=== PATIENT | male | born 1970 | race Caucasian/White ===

== ENCOUNTER 2016-12-30 14:28 | Inpatient (IN) | payer MEDICARE ==
[~2016-12-30] VITALS: Ht 170.2 cm; Wt 72.5 kg
[~2016-12-30 14:28] MED LIST: AZULFIDINE500 MG PO; BLACK COHOSH200 MG PO; CIPRO500 MG PO; COREG6.25 MG PO; DIFLUCAN200 MG PO; FLAGYL500 MG PO; FOLIC ACID1 MG PO; HYDROCHLOROTHIA25 MG PO; LEVAQUIN500 MG PO; LOPRESSOR25 MG PO; METHOTREXATE2.5 MG PO; NORCO 10/325 TA1 TA1 PO; OXY IR30 MG PO; OXYCONTIN30 MG PO; PEPCID20 MG PO; PLAQUENIL200 MG PO; PREDNISONE10 MG PO; PROVENTIL/2.5 MG/3 M INH; ROCEPHIN 1 GM IN1 GM IV; TREXALL10 MG PO; VIBRAMYCIN 100100 MG PO; XANAX1 MG PO; XOPENEX 0.0.63 MG/3 UPD; ZESTORETIC 20/21 TAB PO; ZYLOPRIM100 MG PO; ZYLOPRIM300 MG PO
[2016-12-30 15:46] LABS: BASOPHILS 0.3 % (0-2); EOSINOPHILS 0.5 % (0-7); HEMOGLOBIN 15.8 g/dL (13.5-17.5); IMMATURE GRANULOCYTES 2.5 % (0-5); MCH 30.7 pg (26.0-34.0); MCHC 31.6 g/dL (31.0-37.0); MCV 97.3 fL (80.0-100.0); MONOCYTES 10.8 % (2-11); NEUTROPHILS 72.9 % (40-80); PLATELET COUNT 294 10x3/uL (130-400); RBC 5.14 10x6/uL (4.20-6.10); RDW 16.5 % (11.5-14.5); WBC 15.1 10x3/uL (4.8-10.8)
[2016-12-30 15:59] LABS: INR 0.95 (0.85-1.17); PROTIME 12.5 SECONDS (11.6-15.0)
[2016-12-30 16:00] LABS: APTT 30.4 SECONDS (22.8-39.4)
[2016-12-30 16:01] LABS: ALBUMIN 2.4 g/dL (3.4-5.0); ALKALINE PHOSPHATASE 104 U/L (46-116); ALT (SGPT) 27 U/L (10-68); BILIRUBIN - TOTAL 0.55 mg/dL (0.2-1.3); CALC OSMOLALITY 274 mosm/kg (275-300); CALCIUM 9.1 mg/dL (8.5-10.1); CARBON DIOXIDE 30.2 mmol/L (21.0-32.0); CHLORIDE - SERUM 98 mmol/L (98-107); CREATINE KINASE 18 UL (21-232); CREATININE - SERUM 1.1 mg/dL (0.6-1.3); GLUCOSE 107 mg/dL (74-106); POTASSIUM - SERUM 3.9 mmol/L (3.5-5.1); PROTEIN - SERUM 7.6 g/dL (6.4-8.2); SODIUM 138 mmol/L (136-145); UREA NITROGEN 11 mg/dL (7-18); eGFR NON AFRICAN AMERICAN 76 mL/min (90-120)
[2016-12-30 16:38] LABS: APPEARANCE CLEAR (CLEAR); BILIRUBIN NEGATIVE (NEGATIVE); COLOR YELLOW (YELLOW); GLUCOSE NEGATIVE (NEGATIVE); KETONE SMALL mg/dL (NEGATIVE); LEUKOCYTE ESTERASE NEGATIVE (NEGATIVE); NITRITE NEGATIVE (NEGATIVE); PROTEIN TRACE mg/dL (NEGATIVE); UROBILINOGEN NORMAL (NORMAL)
[2016-12-30 23:44] VITALS: BP 157/97; BMI 18.8
[2016-12-31] VITALS: BP 146/96
[2016-12-31 04:00] VITALS: BP 125/81
[2016-12-31 06:49] LABS: BASOPHILS 0.1 % (0-2); EOSINOPHILS 0.9 % (0-7); HEMATOCRIT 45.6 % (42.0-54.0); HEMOGLOBIN 14.1 g/dL (13.5-17.5); IMMATURE GRANULOCYTES 3.1 % (0-5); LYMPHOCYTES 4.3 % (15-50); MCH 30.2 pg (26.0-34.0); MCHC 30.9 g/dL (31.0-37.0); MCV 97.6 fL (80.0-100.0); MEAN PLATELET VOLUME 8.7 fL (7.4-10.4); MONOCYTES 2.6 % (2-11); RBC 4.67 10x6/uL (4.20-6.10); RDW 16.5 % (11.5-14.5); WBC 14.9 10x3/uL (4.8-10.8)
[2016-12-31 06:50] LABS: PLATELET COUNT 213 10x3/uL (130-400)
[2016-12-31 06:56] LABS: CALC OSMOLALITY 275 mosm/kg (275-300); CALCIUM 7.9 mg/dL (8.5-10.1); CARBON DIOXIDE 29.2 mmol/L (21.0-32.0); CHLORIDE - SERUM 102 mmol/L (98-107); CREATININE - SERUM 0.9 mg/dL (0.6-1.3); GLUCOSE 125 mg/dL (74-106); POTASSIUM - SERUM 3.4 mmol/L (3.5-5.1); SODIUM 138 mmol/L (136-145); UREA NITROGEN 11 mg/dL (7-18); eGFR NON AFRICAN AMERICAN > 90 mL/min (90-120)
--- NOTE | 2016-12-31 07:25 | NUR ---
SLEEPING AT THIS TIME WITH RESPIRATIONS EVEN AND NON LABORED. OXYGEN ON 2L VIA NC. BED ALARM ON AND SRX2 WITH BED IN LOWEST POSITION AND WHEELS LOCKED. CALL LIGHT IN REACH, WILL CONTINUE WITH PLAN OF CARE.
[2016-12-31 09:01] VITALS: BP 171/100
--- NOTE | 2016-12-31 09:41 | NUR ---
SCHEDULED MEDICATIONS ADMINISTERED AT THIS TIME PER ORDER. PT ALERT AND ORIENTED TO SELF AND SITUATION ONLY. STILL REMAINS UNABLE TO MOVE NECK DUE TO PAIN AND STIFFNESS FROM FALL. DR CRUZ AWARE OF THIS. REFUSES SCD'S, BUT LOVENOX ADMINISTERED. ASSESSMENT PERFORMED PER FLOWSHEET. CALL LIGHT IN REACH, SRX1 WITH BED IN LOWEST POSITION AND WHEELS LOCKED. BED ALARM ON. WILL CONTINUE WITH PLAN OF CARE.
[2016-12-31] MEDS ORDERED: TOPROL XL25 MG PO (10:33)
[2016-12-31] MEDS ORDERED: PREDNISONE10 MG PO (10:34)
[2016-12-31] MEDS ORDERED: METHOTREXATE2.5 MG PO (10:34)
[2016-12-31] MEDS ORDERED: METOPROLOL TART50 MG PO (10:39)
[2016-12-31 10:46] VITALS: Ht 170.2 cm; Wt 72.5 kg
--- NOTE | 2016-12-31 11:19 | NUR ---
PRN OXY-IR GIVEN PER ORDER FOR PAIN 01/30. ASSESSMENT PERFORMED PER FLOWSHEET. CALL LIGHT IN REACH, WILL CONTINUE WITH PLAN OF CARE. WILL CONTINUE WITH PLAN OF CARE. BED ALARM ON, CALL LIGHT IN REACH. SRX1 WITH BED IN LOWEST POSITION AND WHEELS LOCKED.
[2016-12-31 13:02] VITALS: BP 161/94
--- NOTE | 2016-12-31 13:45 | NUR ---
PRN TYLENOL 1,000MG ADMINISTERED FOR FEVER, SEE FLOWSHEET.
--- NOTE | 2016-12-31 15:19 | NUR ---
PRN OXY IR 30MG ADMINISTERED PER ORDER FOR PAIN 01/30. TEMPERATURE 99.1 AT THIS TIME. BOUDREAX'S APPLIED TO REDDENED AREA ON COCCYX AND PT POSITION ON RIGHT SIDE. CALL LIGHTIN REACH, BED ALARM REMAINS ON. WILL CONTINUE WITH PLAN OF CARE.
[2016-12-31 17:12] VITALS: BP 120/75
--- NOTE | 2016-12-31 17:25 | NUR ---
SLEEPING AT THIS TIME, POSITIONED ON RIGHT SIDE WITH RESPIRATIONS EVEN AND NON LABORED. CALL LIGHT IN REACH AND BED ALARM REMAINS ON. WILL CONTINUE WITH PLAN OF CARE.
[2016-12-31 20:00] VITALS: BP 114/65
[2017-01-01] VITALS: BP 138/88
--- NOTE | 2017-01-01 03:18 | NUR ---
PT IS RESTING QUIET WITH NO DISTRESS AND EASY RESPIRTATION NOTED. HE HAS O2 IN PLACE AND THE BED IS FLAT DUE TO PAINFUL ARTHRITIS WHEN IT IS MOVED UP OR DOWN FOR COMFORT. THE BED IS LWO, RAILS UP X'S 2 WITH THE CALL LIGHT AT HAND.
[2017-01-01 04:00] VITALS: BP 152/96
[2017-01-01 05:55] LABS: BASOPHILS 0.3 % (0-2); EOSINOPHILS 0.2 % (0-7); HEMOGLOBIN 14.7 g/dL (13.5-17.5); IMMATURE GRANULOCYTES 2.8 % (0-5); LYMPHOCYTES 4.7 % (15-50); MCH 30.4 pg (26.0-34.0); MCHC 30.6 g/dL (31.0-37.0); MCV 99.2 fL (80.0-100.0); MEAN PLATELET VOLUME 8.8 fL (7.4-10.4); PLATELET COUNT 242 10x3/uL (130-400); RBC 4.84 10x6/uL (4.20-6.10); RDW 16.4 % (11.5-14.5); WBC 16.7 10x3/uL (4.8-10.8)
[2017-01-01 06:15] LABS: CALCIUM 8.5 mg/dL (8.5-10.1); CHLORIDE - SERUM 98 mmol/L (98-107); SODIUM 133 mmol/L (136-145); eGFR NON AFRICAN AMERICAN 85 mL/min (90-120)
[2017-01-01 06:17] LABS: CALC OSMOLALITY 268 mosm/kg (275-300); GLUCOSE 194 mg/dL (74-106); POTASSIUM - SERUM 4.6 mmol/L (3.5-5.1); UREA NITROGEN 8 mg/dL (7-18)
--- NOTE | 2017-01-01 07:15 | NUR ---
SLEEPING AT THIS TIME WITH RESPIRATIONS SHALLOW AND EVEN. OXYGEN ON 2L VIA NC. ASSESSMENT PERFORMED PER FLOWSHEET. PT VERY LETHARGIC AND DOESN'T WANT TO STAY AWAKE. MANAGER HOTEL PHYSICIAN PAGED AT THIS TIME WITH NO RETURN PHONE CALL.
[2017-01-01 08:31] VITALS: BP 171/111
--- NOTE | 2017-01-01 09:19 | NUR ---
PLACED IN TEMPORARY CONTACT ISOLATION DUE TO RULING OUT MRSA IN THE PT'S BLOOD STREAM.
--- NOTE | 2017-01-01 10:25 | NUR ---
RAPID RESPONSE CALLED DUE TO DECREASED LOC AND LETHARGY. SEE RAPID RESPONSE FLOW SHEET. DR STEARNS AT BEDSIDE PROVIDING ORDERS. NO RETURN PHONE CALL FROM CARPET CLEANER PHYSICIAN. ORDERS PER ICU. WILL CONTINUE WITH PLAN OF CARE.
--- NOTE | 2017-01-01 11:47 | NUR ---
PT DENNYS CLEANED USING ASEPTIC TECH.DENNYS DRAPED AND PREPPED USING LENS HARDENER. 16 POLISH EASTMAN CATHETER INSERTED MAINTAINING LENS HARDENER.350CC OF CLEAR YELLOW URINE RETURNED IN COLLECTION BAG.PT TOLERATED WELL
--- NOTE | 2017-01-01 11:57 | NUR ---
SCHEDULED MEDICATIONS ADMINISTERED AT THIS TIME. PO MEDICATIONS HELD DUE TO LETHARGY. EASTMAN CATHETER PATENT AND DRAINING TO GRAVITY. BI-PAP PER DR QUINTANA'S ORDER.
[2017-01-01 12:14] VITALS: BP 152/105
--- NOTE | 2017-01-01 13:55 | NUR ---
PAGED MOTOR VEHICLE LIGHT ASSEMBLER PRIMARY CARE DR AT THIS TIME REGARDING HEART RATE 160'S SINUS TACH. AWAITING A PHONE CALL BACK.
--- NOTE | 2017-01-01 14:09 | NUR ---
SIGN INSTALLER CALLED AND HEART RATE 130 SINUS TACH, WHICH IS DOWN FROM 160'S SINUS TACH.
--- NOTE | 2017-01-01 14:45 | NUR ---
SPOKE WITH DR MESSER AT THIS TIME REGARDING PT'S HEART RATE 140-160'S SINUS TACH. NEW ORDERS OBTAINED.
--- NOTE | 2017-01-01 15:05 | NUR ---
PRN OFIRMEV ADMINISTERED FOR FEVER AND ONE TIME DOSE OF LOPRESSOR ADMINISTERED FOR HEART RATE AND BLOOD PRESSURE. PT REMAINS LETHARGIC AND BI PAP IN PLACE. WILL CONTINUE WITH PLAN OF CARE. DOOR OPEN AND PT REMAINS IN CONTACT ISOLATION.
[2017-01-01 15:40] VITALS: BP 99/62
--- NOTE | 2017-01-01 15:41 | NUR ---
TEMPERATURE 98.5 POST 1,000 MG OF OFIRMEV IV AND BLOOD PRESSURE 99/62 AND HEART RATE 124 POST DOSE OF LOPRESSOR 5MG IV PER ORDER. OXYGEN ON 2L AND BI-PAP REMOVED WITH OXYGENS SATURATION 100 %. WILL CONTINUE TO MONITOR PT.
--- NOTE | 2017-01-01 16:15 | NUR ---
FULL BED BATH PROVIDED AND CATAPRES PATCH CAME OFF OF PT DUE TO SWEATY EPISODE. CALLED PHARMACY FOR NEW PATCH TO BE PLACED.
[2017-01-01] MEDS ORDERED: MS CONTIN30 MG PO (16:31)
[2017-01-01] MEDS ORDERED: ROXICODONE15 MG PO (16:31)
[2017-01-01 20:00] VITALS: BP 122/79
[2017-01-02] VITALS: BP 146/77
--- NOTE | 2017-01-02 02:15 | NUR ---
CONTINIOUS PULSE OX PLACED ON RIGHT FOOT, SPO2 98% ON 4LPM 02 NC. RESPIRATORY THERAPY RECOMENDED LEAVING O2 IS DURING THE NIGHT.
[2017-01-02 04:00] VITALS: BP 146/91
[2017-01-02 06:24] LABS: BASOPHILS 0.3 % (0-2); EOSINOPHILS 1.9 % (0-7); HEMATOCRIT 42.6 % (42.0-54.0); IMMATURE GRANULOCYTES 0.9 % (0-5); LYMPHOCYTES 8.5 % (15-50); MCH 29.6 pg (26.0-34.0); MCHC 30.5 g/dL (31.0-37.0); MEAN PLATELET VOLUME 9.1 fL (7.4-10.4); MONOCYTES 6.7 % (2-11); NEUTROPHILS 81.7 % (40-80); PLATELET COUNT 214 10x3/uL (130-400); RBC 4.39 10x6/uL (4.20-6.10)
[2017-01-02 06:27] LABS: WBC 11.4 10x3/uL (4.8-10.8)
[2017-01-02 06:35] LABS: CALCIUM 7.8 mg/dL (8.5-10.1); CARBON DIOXIDE 32.2 mmol/L (21.0-32.0); CHLORIDE - SERUM 98 mmol/L (98-107); CREATININE - SERUM 0.9 mg/dL (0.6-1.3); SODIUM 136 mmol/L (136-145); eGFR NON AFRICAN AMERICAN > 90 mL/min (90-120)
[2017-01-02 06:40] LABS: CALC OSMOLALITY 271 mosm/kg (275-300); GLUCOSE 145 mg/dL (74-106); UREA NITROGEN 5 mg/dL (7-18)
--- NOTE | 2017-01-02 08:05 | NUR ---
ASSESSMENT PER FLOW SHEET.PT WITHOUT DISTRESS.VERY HARD TO WAKE THIS AM,BUT ALERT WHEN AWAKE.REDNESS NOTED TO BUTTOCK BUT NO OPEN AREAS.CALL LIGHT IN REACH.ISOLATION MAINTAINED
--- NOTE | 2017-01-02 08:30 | NUR ---
DECLINES TO EAT BREAKFAST
[2017-01-02 08:33] VITALS: BP 124/78
--- NOTE | 2017-01-02 09:28 | NUR ---
Patient Name: SEKOU ELAINE Admission Status: ER Accout number: [id number] Admission Date: 12-30-2016 : 1970 Admission Diagnosis: Attending: GEORGE Current LOS: 3 Anticipated DC Date: 01-06-2017 Planned Disposition: Home Primary Insurance: WE[employer] MEDICARE ADV Discharge Planning Comments: CM MET WITH PATIENT REGARDING D/C NEEDS AND PLANS. PATIENT STATED HE LIVES WITH HIS (TEJ) AND SHE WILL DRIVE HIM HOME AT DISCHARGE. PATIENT STATED HE HAS A RAMP TO ENTER HOME AND NO STAIRS INSIDE. PATIENT STATED HE IS INDEPENDENT WITH HIS CARE AND HAS A WHEELCHAIR, OXYGEN, PORTABLE O2, AND NEBULIZER AT HOME. PATIENT STATED HIS PCP IS DR. CRUZ AND PHARMACY IS [facility]. PATIENT DOES NOT WANT HOME HEALTH. CM WILL CONTINUE TO FOLLOW PATIENT WITH D/C NEEDS AND PLANS. PCP DR. ANTHONY CHATTERJEE [facility], [place]- [phone] TEJ () [phone] Fun House Operator: Tessa Dc Is the patient Alert and Oriented? Yes 0 * How many steps to enter\exit or inside your home? RAMP 0 * PCP DR. CRUZ 0 * Pharmacy [facility] 0 * Preadmission Environment Home with Family 0 * ADLs Independent 0 * Equipment Nebulizer Oxygen Wheelchair 0 * Other Equipment PORTABLE O2 (LINCARE) 0 * List name and contact numbers for known caregivers / representatives who currently or will assist patient after discharge: TEJ () [phone] 0 * Additional services required to return to the preadmission environment? Yes 0 * Can the patient safely return to the preadmission environment? Yes 0 * Has this patient been hospitalized within the prior 30 days at any hospital? No 0 Grand Total: 0
--- NOTE | 2017-01-02 12:00 | NUR ---
TO VISIT.PT WITHOUT DISTRESS,BUT HARD TO AROUSE.PT WISHES NOT TO VISIT
[2017-01-02 12:41] VITALS: BP 145/83
--- NOTE | 2017-01-02 14:52 | NUR ---
NUTRITION MONITORING & EVAL CHART REVIEWED. RESPIRATORY THERAPIST CURRENTLY IN ROOM. NURSING REPORTS PT REFUSING MEALS AT THIS TIME. WILL CONTINUE TO PROVIDE AHA DIET, ENCOURAGE PO INTAKE. RD FOLLOWING
[2017-01-02 16:15] VITALS: BP 199/103
--- NOTE | 2017-01-02 17:01 | NUR ---
REMAINS WITHUT CHANGE FROM INITIAL SHIFT ASSESSMENT.CONT PLAN OF CARE
[2017-01-02 19:00] VITALS: BP 154/90
[2017-01-03] VITALS: BP 130/76
[2017-01-03 04:00] VITALS: BP 119/79
[2017-01-03 05:08] LABS: BASOPHILS 0.3 % (0-2); EOSINOPHILS 2.1 % (0-7); HEMATOCRIT 43.7 % (42.0-54.0); HEMOGLOBIN 13.7 g/dL (13.5-17.5); IMMATURE GRANULOCYTES 1.9 % (0-5); LYMPHOCYTES 12.5 % (15-50); MCHC 31.4 g/dL (31.0-37.0); MCV 95.8 fL (80.0-100.0); MEAN PLATELET VOLUME 9.3 fL (7.4-10.4); NEUTROPHILS 74.2 % (40-80); RBC 4.56 10x6/uL (4.20-6.10); RDW 16.2 % (11.5-14.5); WBC 11.6 10x3/uL (4.8-10.8)
[2017-01-03 05:12] LABS: PLATELET COUNT 262 10x3/uL (130-400)
[2017-01-03 05:16] LABS: CALC OSMOLALITY 276 mosm/kg (275-300); CALCIUM 8.4 mg/dL (8.5-10.1); CARBON DIOXIDE 31.8 mmol/L (21.0-32.0); CHLORIDE - SERUM 99 mmol/L (98-107); CREATININE - SERUM 0.8 mg/dL (0.6-1.3); GLUCOSE 151 mg/dL (74-106); SODIUM 138 mmol/L (136-145); UREA NITROGEN 6 mg/dL (7-18); eGFR NON AFRICAN AMERICAN > 90 mL/min (90-120)
[2017-01-03 05:24] LABS: POTASSIUM - SERUM 2.8 mmol/L (3.5-5.1)
--- NOTE | 2017-01-03 07:45 | NUR ---
PT CONFUSED AT TIMES RESP EVEN AND NONLABORED IV TO LEFT HAND PATENT AND INTACT SRX2 BED AT LOWEST SETTING CALL LIGHT WITHIN REACH WILL COTINUE TO MONITOR
[2017-01-03 08:49] VITALS: BP 130/88
[2017-01-03 12:41] VITALS: BP 159/104
[2017-01-03 16:23] VITALS: BP 118/81
[2017-01-03 19:00] VITALS: BP 121/77
--- NOTE | 2017-01-03 20:00 | NUR ---
ASSESSMENT PER FLOWSHEET. IV PATENT LEFT HAND OF D51/2NS INFUSING AT 125CC'S/HR SITE CLEAR. RED RASH OVER BODY. EASTMAN TO BS DRAINAGE.TELM. SHOWS SR WITH BBB. HR 98.O2 ON 3L/M PER NC NO DISTRESS.
--- NOTE | 2017-01-03 20:20 | NUR ---
ROXK=[id number]. ORDERED BLOOD CULTURES PRDERED FOR TEMP MEASURES. CHRONOMETER REPAIRER HERE TO DRAW BLOOD WORK.
--- NOTE | 2017-01-03 21:00 | NUR ---
MEDS GIVEN PER MAR.
[2017-01-04] VITALS: BP 108/68
--- NOTE | 2017-01-04 | NUR ---
EYES CLOSED RESPIRATIONS WITH EASE AND UNLABORED.
--- NOTE | 2017-01-04 03:00 | NUR ---
REMAINS AFEBRILE. SR UP X2 CALL LIGHT WITHIN REACH.
[2017-01-04 04:00] VITALS: BP 122/73
[2017-01-04 05:21] LABS: BASOPHILS 0.1 % (0-2); EOSINOPHILS 0 % (0-7); HEMATOCRIT 37.9 % (42.0-54.0); HEMOGLOBIN 11.4 g/dL (13.5-17.5); LYMPHOCYTES 7.4 % (15-50); MCHC 30.1 g/dL (31.0-37.0); MCV 96.4 fL (80.0-100.0); MEAN PLATELET VOLUME 9.3 fL (7.4-10.4); MONOCYTES 3.8 % (2-11); NEUTROPHILS 87.7 % (40-80); RBC 3.93 10x6/uL (4.20-6.10); RDW 16.1 % (11.5-14.5); WBC 13.8 10x3/uL (4.8-10.8)
[2017-01-04 05:22] LABS: PLATELET COUNT 320 10x3/uL (130-400)
[2017-01-04 06:03] LABS: CALCIUM 8.2 mg/dL (8.5-10.1); CARBON DIOXIDE 29.8 mmol/L (21.0-32.0); CHLORIDE - SERUM 103 mmol/L (98-107); CREATININE - SERUM 0.8 mg/dL (0.6-1.3); SODIUM 139 mmol/L (136-145); VANCOMYCIN - TROUGH 1.6 ug/mL (10.0-20.0); eGFR NON AFRICAN AMERICAN > 90 mL/min (90-120)
[2017-01-04 06:04] LABS: CALC OSMOLALITY 289 mosm/kg (275-300); GLUCOSE 323 mg/dL (74-106); POTASSIUM - SERUM 3.7 mmol/L (3.5-5.1); UREA NITROGEN 12 mg/dL (7-18)
--- NOTE | 2017-01-04 07:40 | NUR ---
PT AOX4 RESP EVEN AND NONLABORED PT DENIES NEEDS AT THIS TIME IV TO LEFT HAND PATENT AND INTACT SRX2 BED AT LOWEST SETTING CALL LIGHT WITHIN REACH WILL CONTINUE TO MONITOR
[2017-01-04 08:05] VITALS: BP 117/74
[2017-01-04 11:36] VITALS: BP 120/76
[2017-01-04 16:03] VITALS: BP 118/72
[2017-01-04 20:00] VITALS: BP 125/66
--- NOTE | 2017-01-04 20:00 | NUR ---
ASSESSMENT PER FLOWSHEET. PT MORE ALERT AND ORIENTED X3. SCD'S OFF. IV PATENT LEFT HAND OF D5NS AT 125CC'S/HR. PLACED ON BEDPAN HAD LARGE SOFT FORMED BROWN STOOL CLEANED AND DRIED. O2 ON 3L/M PER NC. SR UP X2 CALL LIGHT WITHIN REACH. TELM. SHOWING SR W/BBB HR AT 82. EASTMAN TO BS DRAINAGE.
--- NOTE | 2017-01-04 22:00 | NUR ---
MEDS GIVEN PER MAR. RMYL=614.HUMALOG INSULIN 16 UNITS GIVEN SUBC PER S/S.
[2017-01-05] VITALS: BP 130/74
--- NOTE | 2017-01-05 | NUR ---
EYES CLOSED RESPIRATIONS WITH EASE AND UNLABORED.
--- NOTE | 2017-01-05 03:00 | NUR ---
'EYES CLOSED RESPIRATIONS WITH EASE AND UNLABORED. DENIES NEEDS.
[2017-01-05 04:00] VITALS: BP 138/90
--- NOTE | 2017-01-05 05:37 | NUR ---
RESTING QUIETLY BODY INGOOD ALIGNMENT. RED RASH ON BODY SEEMS TO BE IMPROVING.
--- NOTE | 2017-01-05 07:00 | NUR ---
PT REC'D FROM [facility]. RESTING IN BED WITH EYES CLOSED. EASILY AROUSED. AAOX4. O2 ON VIA NC AT 3L. CONT PULSE OX READING 98%. PIV TO L HAND FREE OF REDNESS AND SWELLING. LUNG SOUNDS CLEAR AND EQUAL BILAT. REGULAR HEART RATE AND RHYTHM. BOWEL SOUNDS HYPERACTIVE X4 QUADRANTS. REFUSING SCD'S. +2 PEDAL PULSES BILAT. CONTRACTURES BILAT TO ANKLES. PT STATES HE USES WC AT HOME. EASTMAN CATHETER DRAINING YELLOW CLOUDY URINE TO GRAVITY. RATING CURRENT PAIN IN NECK 12/31. EXPLAINED TO PT THAT HE HAS SCHEDULED PAIN MEDICATION DUE AT 9. PT STATES HE UNDERSTANDS AND HAS NO QUESTIONS. BED LOW, CALL LIGHT IN REACH, DENIES NEEDS. CPOC.
[2017-01-05 08:05] VITALS: BP 156/90
[2017-01-05 08:09] LABS: BASOPHILS 0.1 % (0-2); EOSINOPHILS 0.6 % (0-7); HEMOGLOBIN 11.5 g/dL (13.5-17.5); IMMATURE GRANULOCYTES 1.3 % (0-5); LYMPHOCYTES 9.7 % (15-50); MCH 29.4 pg (26.0-34.0); MCHC 30.3 g/dL (31.0-37.0); MCV 97.2 fL (80.0-100.0); MEAN PLATELET VOLUME 9.2 fL (7.4-10.4); MONOCYTES 4.1 % (2-11); NEUTROPHILS 84.2 % (40-80); PLATELET COUNT 367 10x3/uL (130-400); RBC 3.91 10x6/uL (4.20-6.10); RDW 16.2 % (11.5-14.5); WBC 15.1 10x3/uL (4.8-10.8)
[2017-01-05 08:24] LABS: ALBUMIN 1.6 g/dL (3.4-5.0); ALKALINE PHOSPHATASE 69 U/L (46-116); ALT (SGPT) 21 U/L (10-68); CALC OSMOLALITY 282 mosm/kg (275-300); CALCIUM 8.2 mg/dL (8.5-10.1); CARBON DIOXIDE 33.3 mmol/L (21.0-32.0); CHLORIDE - SERUM 104 mmol/L (98-107); CREATININE - SERUM 0.7 mg/dL (0.6-1.3); POTASSIUM - SERUM 3.6 mmol/L (3.5-5.1); PROTEIN - SERUM 5.6 g/dL (6.4-8.2); SODIUM 141 mmol/L (136-145); UREA NITROGEN 11 mg/dL (7-18); eGFR NON AFRICAN AMERICAN > 90 mL/min (90-120)
[2017-01-05 08:29] LABS: GLUCOSE 150 mg/dL (74-106)
--- NOTE | 2017-01-05 08:50 | NUR ---
PT RESTING IN BED WITH COMPLAINTS OF PAIN OF A 7 ON A SCALE OF 1-10. PT STATED THAT NURSE TOLD HIM THAT MEDICATION WOULD BE GIVEN WITH AM MEDS, INFORMED THE PT THAT I WOULD DISCUSS WITH THE NURSE. NO OTHER COMPLAINTS AT THIS TIME. BED IN LOW POSITION AND CALL LIGHT WITHIN REACH. WILL CONTINUE TO MONITOR.
--- NOTE | 2017-01-05 11:58 | NUR ---
CURRENT FSBS 229. 12 UNITS OF INSULIN ADMINISTERED PER SS. MEGGAN OLIVARESTIE TAMPER ACCESS NURSE, AT BEDSIDE PLACING MIDLINE.
[2017-01-05 12:55] VITALS: BP 133/76
--- NOTE | 2017-01-05 14:44 | NUR ---
CM REASSESSMENT NOTE: CM DISCUSSED HOME HEALTH WITH PATIENT AND HE STATED FOR CM TO CALL HIS (TEJ) TO CHOOSE. TEJ CHOSE [facility] IF NEEDED. CM WILL CONTINUE TO FOLLOW PATIENT WITH D/C NEEDS AND PLANS.
[2017-01-05 15:53] VITALS: BP 143/85
[2017-01-05 20:00] VITALS: BP 123/63
[2017-01-06] VITALS: BP 125/82
[2017-01-06 04:00] VITALS: BP 128/80
[2017-01-06 08:00] VITALS: BP 142/82
[2017-01-06 11:03] VITALS: BP 119/76
[2017-01-06] MEDS ORDERED: NICODERM C1 PATCH .2 TRANSDERM (11:26)
[2017-01-06] MEDS ORDERED: Ancef 2 GM/Dextrose IV (11:26)
[2017-01-06] MEDS ORDERED: ALDACTONE25 MG PO (11:27)
[2017-01-06] MEDS ORDERED: COZAAR50 MG PO (11:27)
[2017-01-06] MEDS ORDERED: CATAPRES TTS-20.2 MG TRANSDERM (11:27)
[2017-01-06] MEDS ORDERED: FLORAJEN3 CAPS460 MG PO (11:29)
[2017-01-06] MEDS ORDERED: PULMICORT0.5 MG/21 UPD (11:29)
--- NOTE | 2017-01-06 12:53 | CN ---
PATIENT NAME:SEKOU ELAINE MEDICAL RECORD: [id number] : [birth year] LOCATION:D.[id number] ADMIT DATE: 12/30/16 ACCOUNT: [id number] CONSULTING PHYSICIAN: LINDA CABRAL MD REFERRING PHYSICIAN: LUIS MESSER MD DATE OF CONSULTATION: 01/03/2017 HISTORY OF PRESENT ILLNESS: This is a 46-year-old gentleman with a history of rheumatoid arthritis on antirheumatic agents, was admitted with fevers, chills, tachycardia, hypertension, ongoing for 2-3 days. He reports long-term dyspnea, has a history of obstructive pulmonary disease. Further evaluation revealed the echocardiographic study which showed a cardiomyopathy with EF 30%. We are asked to see him concerning his cardiovascular status. He does have a longstanding smoking history with obstructive pulmonary disease. He has been admitted previously for sepsis. Mild family history of coronary artery disease. No history of dyslipidemia to his knowledge. PAST MEDICAL HISTORY: Includes: 1. History of hypertension. 2. Obstructive pulmonary disease. 3. Ongoing tobacco use. 4. Gastroesophageal reflux disease. 5. Rheumatoid arthritis with resultant right hip replacement. ALLERGIES: None known. MEDICATIONS: On admission include methotrexate 10 mg weekly, albuterol q.6 p.r.n., metoprolol 50 b.i.d., Xanax 1 mg t.i.d. as needed, MS Contin 30 mg q.12, Roxicodone 15 mg q.4 p.r.n. breakthrough pain, HCTZ 25 q. day, prednisone 10 q.day. SOCIAL HISTORY: Disabled. Smokes about a pack a day. Occasional drinker. He uses recreational cannabis. REVIEW OF SYSTEMS: The patient reports easy bruising but reports no swollen glands. The patient reports no fever, no night sweats, no significant weight gain, no significant weight loss. No significant exercise tolerance. The patient reports no dry eyes, no irritation, no vision change. Patient reports no difficulty hearing and no ear pain. Patient reports no frequent nose bleeds or nose and sinus problems. Patient reports on arm pain on exertion. No shortness of breath while lying down. No history of heart murmur. Patient reports no cough, no wheezing or coughing up blood. Patient reports no abdominal pain, no vomiting. Normal appetite. No diarrhea and not vomiting blood. No nausea and no constipation. Patient reports no incontinence. No difficulty urinating. No hematuria. No increased frequency. Patient reports no muscle aches. No weakness, no arthralgias, no back pain. No swelling of the extremities. Patient reports no abnormal mole, no jaundice, no rashes. Reports no loss of consciousness. No weakness and no numbness. No seizures, dizziness, or headaches. The patient reports no depression, no sleep disturbance, feeling safe in a relationship and no alcohol abuse. Patient reports on fatigue. Reports no runny nose or sinus pressure. No itching, no hives, and no frequent sneezing. PHYSICAL EXAMINATION: GENERAL: Pleasant gentleman, in no acute distress. CONSULT REPORT [id number] SEKOU ELAINE RAY VITAL SIGNS: Pulse currently 100, blood pressure 159/104. HEENT: Normocephalic, atraumatic. NECK: No bruits noted. HEART: Regular, S3 gallop is noted. II/ systolic ejection murmur. LUNGS: Fair air excursion, few expiratory wheezes. ABDOMEN: Soft, nontender. EXTREMITIES: Pulses are decreased 1+. No edema. There is some RA deformities noted in the upper extremities. NEUROLOGIC: Grossly intact. IMPRESSION: Cardiomyopathy, questionable if related to current illness. I agree with current management. We will add ARB to current medications. Once the defervesced is from current illness, would consider diagnostic angiography to exclude ischemic cardiomyopathy. Further recommendations based on the above. TRANSINT:[id number] Voice Confirmation ID: [id number] DOCUMENT ID: [id number] LINDA CABRAL MD at 1253 CC: [id number] DICTATION DATE: 01/03/17 1450 PRINT FINISHING WORKER: 01/04/17 0047 ADM IN [facility] [address] [id number]
--- NOTE | 2017-01-06 12:53 | EC ---
PATIENT:SEKOU ELAINE DATE OF SERVICE: 12/30/16 SEX: M MEDICAL RECORD: [id number] DATE OF : [birth year] LOCATION:D.MS [facility]222 AGE OF PATIENT: 46 ADMISSION DATE: 12/30/16 REFERRING PHYSICIAN: INTERPRETING PHYSICIAN: LINDA CABRAL MD ECHOCARDIOGRAM REPORT ECHO CHARGES 4 ECHO COMPLETE CLINICAL DIAGNOSIS: FEVER - R/O SBE ECHOCARDIOGRAPHIC MEASUREMENTS (adult normal given) AC root (d.<3.7cm) 3.3 LV Septum d (<1.2 cm> 1.6 Valve Excursion 1.6 LV Septum (systole) 2.2 Left Atria (s.<4.0cm> 4.2 LVPW d(<1.2cm) 1.5 RV (d.<2.3cm) 3.2 LVPW (sytole) 2.0 LV diastole(<5.6CM) 5.9 MV E-F(>70mm/sec) LV systole 4.4 LVOT Diameter 1.8 MV exc.(>10mm) Est.ejection fraction (50-75%) Pericardial Effusion N DOPPLER: LVIT A 126 E 82.0 LA RVSP 20.0 LVOT 107 AOP1/2T Asc. Ao 173 RVOT 74.0 RA PA 112 AV Gradient Peak 12.0 AV Mean 6.2 AV Area 1.3 MV Gradient Peak 6.0 MV Mean 2.1 MV Area COMMENTS: Sheet Rock Installation Helper: Terry MONTEMAYOR KEISER American Indian Studies Professor:10 Dr. Lara TAPE# PACS DATE OF SERVICE: 01/02/2017 Adequate 2D echo, color flow, spectral Doppler and M-mode. LVH is present. LV internal dimensions are dilated. LV is globally hypokinetic with reduced EF. Estimated EF 30%. Aortic valve sclerosis without stenosis by Doppler interrogation. Left atrium is mildly dilated at 4.2 cm. The mitral valve is thickened. Trace MR. Right-sided chamber is grossly normal. Trace TR. TRANSINT:[id number] Voice Confirmation ID: [id number] DOCUMENT ID: [id number] ECHOCARDIOGRAM REPORT [id number] SEKOU ELAINE LINDA CABRAL MD at 1253 CC: [id number] DICTATION DATE: 01/02/17 1331 PARKS AND RECREATION MANAGER: 01/03/17 0035 ADM IN [facility] [address] [id number]
[2017-01-06 15:01] VITALS: BP 108/62
--- NOTE | 2017-01-06 16:23 | NUR ---
CM REASSESSMENT NOTE: PATIENT IS DISCHARGING HOME TODAY BY PRIVATE CAR- DRIVING. [facility] OUT [facility] [place] WILL BE SEEING PATIENT AND HOME IV SPECIALISTS OUT [facility] WILL BE THE SUPPLIER FOR HIS HOME IV ABX. HOME IV SPECIALIST WILL CALL [facility] AND SET TIME TO MEET AT PATIENTS HOME TONIGHT. PATIENTS REQUESTED CM ASK HOME IV IF SHE COULD PAY 20.00 TONIGHT AND PAY 35.65 ON THE 3RD WHEN HER CHECK COMES IN. CM CALLED AND ARIADNA STATED THAT WOULD BE FINE. EUGENE WITH [facility] WAS GIVEN SPECIFIC DIRECTIONS TO HOME. HOME IV SPECIALIST- [phone] FRANTZ ROSENTHAL [facility] ([facility]) [phone] HILDA
--- NOTE | 2017-01-06 16:40 | NUR ---
DISCHARGE INSTRUCTIONS COMPLETED WITH PATIENT. D/C IV WITH CATHETER INTACT. PATIENT VERBALIZED UNDERSTANDING FOR DISCHARGE INSTRUCTIONS AND DENIES QUESTIONS.
--- NOTE | 2017-01-06 16:55 | NUR ---
PATIENT LEFT VIA WHEELCHAIR.
== END 2017-01-06 16:56 | disposition home health service (06) | DRG 871 ==
LOC: D.ER 14:28 → D.MS 17:26
PROVIDERS: Emergency Medicine; Family Medicine Adult Medicine; Student in an Organized Health Care Education/Training Program; ADMIT Family Medicine
DX: A41.01 Sepsis due to Methicillin susceptible Staphylococcus aureus (principal); J96.22 Acute and chronic respiratory failure with hypercapnia; R53.2 Functional quadriplegia; J44.1 Chronic obstructive pulmonary disease with (acute) exacerbation; J45.901 Unspecified asthma with (acute) exacerbation; F17.203 Nicotine dependence unspecified, with withdrawal; E87.1 Hypo-osmolality and hyponatremia; M10.9 Gout, unspecified; M06.9 Rheumatoid arthritis, unspecified; R21 Rash and other nonspecific skin eruption; M54.2 Cervicalgia

== ENCOUNTER 2017-06-23 21:50 | Inpatient (IN) | payer MEDICARE ==
[~2017-06-23] VITALS: Ht 170.2 cm; Wt 58.8 kg
[~2017-06-23 21:50] MED LIST changes: +ALDACTONE25 MG PO; +Ancef 2 GM/Dextrose IV; +CATAPRES TTS-20.2 MG TRANSDERM; +COZAAR50 MG PO; +FLORAJEN3 CAPS460 MG PO; +METOPROLOL TART50 MG PO; +MS CONTIN30 MG PO; +NICODERM C1 PATCH .2 TRANSDERM; +PULMICORT0.5 MG/21 UPD; +ROXICODONE15 MG PO; +TOPROL XL25 MG PO
[2017-06-23 23:22] LABS: HEMATOCRIT 38.2 % (42.0-54.0); HEMOGLOBIN 11.8 g/dL (13.5-17.5); MCH 28.6 pg (26.0-34.0); MCHC 30.9 g/dL (31.0-37.0); MCV 92.7 fL (80.0-100.0); MEAN PLATELET VOLUME 9.7 fL (7.4-10.4); PLATELET COUNT 243 10x3/uL (130-400); RBC 4.12 10x6/uL (4.20-6.10); RDW 15.8 % (11.5-14.5); WBC 24.8 10x3/uL (4.8-10.8)
[2017-06-23 23:31] LABS: APPEARANCE CLOUDY (CLEAR); BACTERIA FEW /hpf (NONE SEEN); BILIRUBIN 1+ (NEGATIVE); COLOR YELLOW (YELLOW); EPITHELIAL CELLS OCC /hpf (0-5); GLUCOSE NEGATIVE (NEGATIVE); KETONE SMALL mg/dL (NEGATIVE); MUCUS <1+ /lpf (NONE SEEN); NITRITE NEGATIVE (NEGATIVE); PROTEIN 1+ mg/dL (NEGATIVE); RED CELLS - URINE 0-5 /hpf (0-5); SPECIFIC GRAVITY 1.015 (1.005-1.020)
[2017-06-23 23:32] LABS: AMORPHOUS SEDIMENT >1+ /lpf (NONE SEEN)
[2017-06-23 23:51] LABS: ALBUMIN 1.7 g/dL (3.4-5.0); ANION GAP 14.6 mmol/L (8-16); BILIRUBIN - TOTAL 0.37 mg/dL (0.2-1.3); CALCIUM 8.5 mg/dL (8.5-10.1); CARBON DIOXIDE 25.8 mmol/L (21.0-32.0); CREATININE - SERUM 1.5 mg/dL (0.6-1.3); MAGNESIUM - SERUM 1.7 mg/dL (1.8-2.4); POTASSIUM - SERUM 4.4 mmol/L (3.5-5.1); PROTEIN - SERUM 6.8 g/dL (6.4-8.2); TROPONIN-I 0.021 ng/mL (0.000-0.060)
[2017-06-24] VITALS (7 sets, daily range): BP systolic 81–127; BP diastolic 53–84; Ht 170.2 cm; Wt 58.8 kg
[2017-06-24] LABS: LYMPHOCYTES 5 % (15-50); MONOCYTES 1 % (2-11); NEUTROPHILS 94 % (40-80); PLATELET ESTIMATE NORMAL
[2017-06-24 00:02] LABS: VACUOLES OCC
[2017-06-24] MEDS ORDERED: METOPROLOL TART50 MG PO (01:17)
--- NOTE | 2017-06-24 01:33 | NUR ---
PATIENT ARRIVED FROM THE ER VIA WHEELCHAIR, ALERT AND ORIENTED TO CALL LIGHT AND ROOM. STATES PAIN AT A 8 ON PAIN SCALE. DENIES NEEDS AT THIS TIME, WILL GIVE PAIN MEDICATION AND MONITOR. CALL LIGHT PLACED IN REACH.
--- NOTE | 2017-06-24 01:54 | NUR ---
PATIENT REQUEST FOR HIS DOSE OF XANAX, PER DR ALICEA IN THE ER I CAN DO AN ORDER FOR XANAX 1 MG TID PRN.
--- NOTE | 2017-06-24 03:03 | NUR ---
PATIENT IS RESTING WELL IN BED, RESPIRATIONS EVEN AND UNLABORED. CALL LIGHT IN REACH, WILL CONTINUE PLAN OF CARE.
--- NOTE | 2017-06-24 07:30 | NUR ---
RECEIVED PT IN BED EYES CLOSED RESP UNLABORED NAD NOTED
[2017-06-25] VITALS: BP 100/64
[2017-06-25 04:00] VITALS: BP 65/38
--- NOTE | 2017-06-25 04:14 | NUR ---
SURGICAL TECHNICIAN ASSISTED PT TO TAKE A COMPLETE SHOWER AND WASH HAIR. HOSPITAL SCRUBS PROVIDED. PT ABLE TO AMBULATE SMALL STEPS USING HIS WALKER. ASSESSED COCCYX AREA WHERE PT IS REPORTED TO HAVE A STAGE 3 WOUND. PATIENT STATES HIS THINKS SHE SEES "BONE". EXAMINED AREA AND FEEL THAT AREA IS DEFINITELY A STAGE 3, AND HAS VERY LITTLE IN THE WAYS OF BEING ABL TO PACK IT DUE TO THE BONY PROMINENCE OF PT'S COCCYX. W/D MAYCO RG 2X2 THEN A MEPILEX DRESSING APPLIED TO MOISTEN THE WOUND BED AND ALSO GIVE CUSHION TO THE AREA. WILL CONTINUE TO MONITOR, PT WILL BE SEEN BY GENERAL MAGISTRATE ON MONDAY AND UNTIL THEN WILL DO W/D AND MEPILEX.
[2017-06-25 05:44] LABS: BASOPHILS 0 % (0-2); EOSINOPHILS 0 % (0-7); HEMATOCRIT 32.5 % (42.0-54.0); HEMOGLOBIN 10.1 g/dL (13.5-17.5); IMMATURE GRANULOCYTES 0.7 % (0-5); LYMPHOCYTES 4.1 % (15-50); MCH 28.6 pg (26.0-34.0); MCHC 31.1 g/dL (31.0-37.0); MCV 92.1 fL (80.0-100.0); MEAN PLATELET VOLUME 9.6 fL (7.4-10.4); MONOCYTES 4.1 % (2-11); NEUTROPHILS 91.1 % (40-80); PLATELET COUNT 247 10x3/uL (130-400); RBC 3.53 10x6/uL (4.20-6.10); RDW 16.1 % (11.5-14.5); WBC 21.3 10x3/uL (4.8-10.8)
[2017-06-25 06:10] LABS: ALBUMIN 1.4 g/dL (3.4-5.0); ALKALINE PHOSPHATASE 80 U/L (46-116); ALT (SGPT) 15 U/L (10-68); CALCIUM 8.7 mg/dL (8.5-10.1); CARBON DIOXIDE 25.9 mmol/L (21.0-32.0); CHLORIDE - SERUM 101 mmol/L (98-107); GLUCOSE 157 mg/dL (74-106); POTASSIUM - SERUM 4.2 mmol/L (3.5-5.1); PROTEIN - SERUM 5.9 g/dL (6.4-8.2); SODIUM 136 mmol/L (136-145)
[2017-06-25 06:12] LABS: CALC OSMOLALITY 277 mosm/kg (275-300); UREA NITROGEN 22 mg/dL (7-18); eGFR NON AFRICAN AMERICAN 84 mL/min (90-120)
--- NOTE | 2017-06-25 07:30 | NUR ---
RESTING QUIETLY EYES CLOSED RESP UNLABORED NAD NOTED
--- NOTE | 2017-06-25 07:45 | NUR ---
LYING IN BED ON RIGHT SIDE EYES CLOSED RESTING. APPROPRIATE RISE AND FALL OF CHEST. NO S/SX OF ACUTE DISTRESS NOTED. CALL LIGHT AND PERSONAL ITEMS WITHIN REACH, BED LOW AND SR X3. WILL CONTINUE TO MONITOR
[2017-06-25 09:34] VITALS: BP 84/50
--- NOTE | 2017-06-25 09:46 | NUR ---
LYING IN BED ON LEFT SIDE RESTING. ALERT AND ORIENTED X4. DENIES ANY NEEDS OR PAIN. NO S/SX OF ACUTE DISTRESS NOTED. CALL LIGHT AND PERSONAL ITEMS WITHIN REACH, BED LOW AND SR X3. WILL CONTINUE TO MONITOR
--- NOTE | 2017-06-25 10:40 | NUR ---
C/O GENERALIZED BODY PAIN 01/30 REQUESTED PAIN MEDICATION. ADMINISTERED PERCOCET 10MG PER ORDER. CALL LIGHT AND WATER WITHIN REACH, BED LOW AND SR X2. WILL CONTINUE TO MONITOR
[2017-06-25 12:16] VITALS: BP 101/65
--- NOTE | 2017-06-25 12:32 | NUR ---
SITTING UP ON SIDE OF BED EATING LUNCH. AT BEDSIDE. CONTACT ISOLATION IS IN EFFECT UNTIL MICRO LABS CONFIRM MRSA. DENIES ANY NEEDS. NO S/SX OF ACUTE DISTRESS NOTED. CALL LIGHT AND PERSONAL ITEMS WITHIN REACH, BED LOW AND SR X2. WILL CONTINUE TO MONITOR
--- NOTE | 2017-06-25 14:27 | NUR ---
SITTING UP IN BED VISITING WITH FAMILY. DENIES ANY NEEDS. NO S/SX OF ACUTE DISTRESS NOTED. CALL LIGHT WITHIN REACH, BED LOW AND SR X3. WILL CONTINUE TO MONITOR
[2017-06-25 16:12] VITALS: BP 100/64
--- NOTE | 2017-06-25 17:04 | NUR ---
LYING IN BED ON RIGHT SIDE EYES CLOSED RESTING. APPROPRIATE RISE AND FALL OF CHEST. NO S/SX OF ACUTE DISTRESS NOTED. CALL LIGHT AND PERSONAL ITEMS WITHIN REACH, BED LOW AND SR X2. WILL CONTINUE TO MONITOR
--- NOTE | 2017-06-25 19:45 | NUR ---
PT RESTING IN BED. AWAKE/ALERT. NOW ON ISOLATION PRECAUTIONS FOR POSSIBLE MRSA OF COCCYX WOUND. IVF NS @ 100ML/HR INFUSING TO LFA. NONLABORED RESPIRATIONS ON ROOM AIR. SEE ASSESSMENT. CPOC.
[2017-06-25 21:46] VITALS: BP 101/69
[2017-06-26] VITALS: BP 118/74
--- NOTE | 2017-06-26 02:58 | NUR ---
PT RESTING WITH EYES CLOSED. RESPS EVEN/NONLABORED. IVF INFUSING. CPOC.
--- NOTE | 2017-06-26 05:26 | NUR ---
PT ACCIDENTALLY PULLED OUT HIS IV. RESITED 20G X 1 ATTEMPT TO RFA AND IVF NS @ 100ML/HR RESUMMED. PT WITH CHRONIC PAIN R/T RHEUMATOID ARTHRITIS. PAIN PILL GIVEN AT THIS TIME.
[2017-06-26 05:33] VITALS: BP 136/88
[2017-06-26 05:34] LABS: BASOPHILS 0.1 % (0-2); EOSINOPHILS 0.2 % (0-7); HEMATOCRIT 33.6 % (42.0-54.0); HEMOGLOBIN 10.5 g/dL (13.5-17.5); IMMATURE GRANULOCYTES 0.7 % (0-5); LYMPHOCYTES 5.3 % (15-50); MCH 28.3 pg (26.0-34.0); MCHC 31.3 g/dL (31.0-37.0); MCV 90.6 fL (80.0-100.0); MEAN PLATELET VOLUME 9.5 fL (7.4-10.4); MONOCYTES 3.3 % (2-11); NEUTROPHILS 90.4 % (40-80); PLATELET COUNT 268 10x3/uL (130-400); RBC 3.71 10x6/uL (4.20-6.10); RDW 15.6 % (11.5-14.5)
[2017-06-26 05:47] LABS: WBC 15.9 10x3/uL (4.8-10.8)
[2017-06-26 05:54] LABS: ALBUMIN 1.5 g/dL (3.4-5.0); ALKALINE PHOSPHATASE 79 U/L (46-116); ALT (SGPT) 14 U/L (10-68); CALC OSMOLALITY 275 mosm/kg (275-300); CALCIUM 8.5 mg/dL (8.5-10.1); CARBON DIOXIDE 27.4 mmol/L (21.0-32.0); CHLORIDE - SERUM 101 mmol/L (98-107); CREATININE - SERUM 0.9 mg/dL (0.6-1.3); GLUCOSE 137 mg/dL (74-106); POTASSIUM - SERUM 3.9 mmol/L (3.5-5.1); PROTEIN - SERUM 6.2 g/dL (6.4-8.2); SODIUM 136 mmol/L (136-145); UREA NITROGEN 18 mg/dL (7-18); eGFR NON AFRICAN AMERICAN > 90 mL/min (90-120)
--- NOTE | 2017-06-26 07:30 | NUR ---
PT SITTING UP IN BED SLEEPING NO S/S DISTRESS NOTED. WILL CONT TO MONITOR
[2017-06-26 08:04] LABS: MAGNESIUM - SERUM 1.8 mg/dL (1.8-2.4); PHOSPHOROUS 3.6 mg/dL (2.5-4.9)
[2017-06-26 08:52] VITALS: BP 102/67
--- NOTE | 2017-06-26 11:00 | NUR ---
STILL WAITING FOR PHARM TO BRING UP SANTYL CREAM.
--- NOTE | 2017-06-26 12:34 | NUR ---
PT LAYING TO LEFT SIDE SLEEPING. DRESSING CHANGE WAS DONE TO PT SACRAL WOUND. SANTYL CREAM APPLIED AND DRESSED ORDER STATES. PT TOLERATED WELL. PT IS ABLE TO SHIFT HIS OWN WEIGHT. PT WAS INSTRUCTED TO TRY AND STAY OFF HIS BOTTOM MUCH POSSIBLE AND SHIFT HIS BODY WEIGHT FREQUENTLY AT LEAST EVERY HOUR. PT IS BEING COMPLIANT WITH THIS TASK. PT DENIES ANY OTHER NEEDS AT THIS TIME WILL CONT TO MONITOR
[2017-06-26 12:39] VITALS: BP 99/62
--- NOTE | 2017-06-26 14:22 | NUR ---
Wound care consult: Pt has an unstageable pressure injury to sacrum. The wound bed cannot be visualized d/t yellow slough covering it. It measures 1.5cm x 2.5cm 0.7cm. There is no odor noted. Pt states he turns/repositions himself while in bed, can sit up on side of bed, walks with a walker and has no incontinence. He states the sacral wound has been there for "a while". Will recommend santyl ointment for the wound. Wound care will monitor.
[2017-06-26 16:27] VITALS: BP 131/81
--- NOTE | 2017-06-26 20:19 | NUR ---
HS MEDS GIVEN WITH FRESH ICE WATER. XANAX 1 TAB GIVEN AT PT REQUEST.
[2017-06-26 22:04] VITALS: BP 108/64
[2017-06-27 02:14] VITALS: BP 98/61
--- NOTE | 2017-06-27 03:37 | NUR ---
RESTING ON RIGHT SIDE, RESPERATIONS EVEN, NO S/S DISTRESS NOTED.
[2017-06-27 05:55] VITALS: BP 110/70
[2017-06-27 06:31] LABS: BASOPHILS 0.2 % (0-2); EOSINOPHILS 0.7 % (0-7); HEMATOCRIT 34.4 % (42.0-54.0); HEMOGLOBIN 10.8 g/dL (13.5-17.5); IMMATURE GRANULOCYTES 0.7 % (0-5); LYMPHOCYTES 11.8 % (15-50); MCH 28.5 pg (26.0-34.0); MCHC 31.4 g/dL (31.0-37.0); MCV 90.8 fL (80.0-100.0); MEAN PLATELET VOLUME 8.9 fL (7.4-10.4); MONOCYTES 5.1 % (2-11); NEUTROPHILS 81.5 % (40-80); PLATELET COUNT 327 10x3/uL (130-400); RBC 3.79 10x6/uL (4.20-6.10); RDW 15.5 % (11.5-14.5); WBC 11.3 10x3/uL (4.8-10.8)
[2017-06-27 06:51] LABS: ALBUMIN 1.6 g/dL (3.4-5.0); ALKALINE PHOSPHATASE 66 U/L (46-116); ALT (SGPT) 11 U/L (10-68); BILIRUBIN - TOTAL 0.22 mg/dL (0.2-1.3); CALC OSMOLALITY 278 mosm/kg (275-300); CALCIUM 8.4 mg/dL (8.5-10.1); CARBON DIOXIDE 32.2 mmol/L (21.0-32.0); CHLORIDE - SERUM 103 mmol/L (98-107); CREATININE - SERUM 0.7 mg/dL (0.6-1.3); GLUCOSE 91 mg/dL (74-106); MAGNESIUM - SERUM 1.8 mg/dL (1.8-2.4); PHOSPHOROUS 3.5 mg/dL (2.5-4.9); POTASSIUM - SERUM 4.1 mmol/L (3.5-5.1); PROTEIN - SERUM 6.2 g/dL (6.4-8.2); SODIUM 139 mmol/L (136-145); UREA NITROGEN 16 mg/dL (7-18); eGFR NON AFRICAN AMERICAN > 90 mL/min (90-120)
--- NOTE | 2017-06-27 09:14 | NUR ---
AM ROUNDS - PT IN BED AND APPEARS TO BE SLEEPING AT THIS TIME. UP WITH ASSIST, WALKER. IV TO RIGTH FA, NS AT 100CC/HR. BED AT LOWEST POSITION. CALL LAURA IN USE/REACH. SIDE RAILS UP X2. WILL CONTINUE TO MONITOR
[2017-06-27 09:48] VITALS: BP 124/83
[2017-06-27 12:26] VITALS: BP 130/84
[2017-06-27] MEDS ORDERED: FLORAJEN3 CAPS460 MG PO (13:52)
[2017-06-27] MEDS ORDERED: DOXYCYCLINE HY100 M2 PO (13:53)
[2017-06-27 15:16] VITALS: BP 128/83
--- NOTE | 2017-06-27 17:15 | NUR ---
D/C - WRITTEN ADN VERBAL D/C INSTRUCTIONS GIVEN TO PT. IV TO RIGHT FA D/C, 2X2 DRESSING APPLIED AND SECURED WITH TAPE, CATH TIP INTACT. HEART MONITOR D/C AND RETURNED TO FERRYBOAT OPERATOR HELPER. PT LEFT FLOOR VIA WHEELCHAIR WITH CLASSIFICATIONS OFFICER CC/CM. WILL D/C
--- NOTE | 2017-06-27 19:17 | NUR ---
Patient Name: SEKOU ELAINE Admission Status: ER Accout number: [id number] Admission Date: 06-24-2017 : 1970 Admission Diagnosis:URINARY TRACT INFECTION, SITE NOT SPECIFIED Attending: VIBHA Current LOS: 3 Anticipated DC Date: 06-27-2017 Planned Disposition: Home Primary Insurance: WELLC[employer] MEDICARE ADV LATE ENTRY: Discharge Planning Comments: * Is the patient Alert and Oriented? Yes 0 * How many steps to enter\exit or inside your home? 2 0 * PCP DR. CRUZ 0 * Pharmacy [facility] 0 * Preadmission Environment Home with Family 0 * ADLs Independent 0 * Equipment Walker Wheelchair 0 * Other Equipment [facility]IP[facility] PROVIDER 0 * List name and contact numbers for known caregivers / representatives who currently or will assist patient after discharge: TEJ ELAINE, SPOUSE, 0 * Community resources currently utilized None 0 * Please name any agencies selected above. NONE 0 * Additional services required to return to the preadmission environment? No 0 * Can the patient safely return to the preadmission environment? Yes 0 * Has this patient been hospitalized within the prior 30 days at any hospital? No 0 CM MET WITH PT IN ROOM TO DISCUSS DISCHARGE PLANNING AND NEEDS. PT REPORTS LIVING AT HOME INDEPENDENTLY WITH SPOUSE AND CHILD. PT LIVES IN [facility] WITH WATER AND ELECRIC FOR NOW, IS WAITING FOR UTILITIES TO BE TURNED ON AND THEY WILL BE MOVING INTO A CABIN. PT HAS WALKER AND WHEELCHAIR FROM [facility]. PT HAS NO OUTSIDE SERVICES ASSISTING IN THE HOME. CM DISCUSSED AVAILABILITY OF HOME HEALTH, REHAB SERVICES AND MEDICAL EQUIPMENT. PT DENIES DISCHARGE NEEDS, REPORTS HIS WILL PICK HIM UP FOR DISCHARGE HOME. IMPORTANT MESSAGE FROM MEDICARE PROVIDED AND EXPLAINED. Automotive Parts Advisor: Giuliano Gill
== END 2017-06-27 17:59 | disposition home or self-care (01) | DRG 592 ==
LOC: D.ER 21:50 → D.M2 06-24 00:22
PROVIDERS: Emergency Medicine; Nurse Practitioner Family; ADMIT Family Medicine
DX: L89.153 Pressure ulcer of sacral region, stage 3 (principal); R53.2 Functional quadriplegia; R78.81 Bacteremia; N39.0 Urinary tract infection, site not specified; F17.203 Nicotine dependence unspecified, with withdrawal; A49.01 Methicillin susceptible Staphylococcus aureus infection, unspecified site; J44.9 Chronic obstructive pulmonary disease, unspecified; M10.9 Gout, unspecified; I10 Essential (primary) hypertension; M06.9 Rheumatoid arthritis, unspecified

== ENCOUNTER 2017-08-08 13:36 | Emergency (ER) | payer MEDICARE ==
[2017-06-24 11:38] VITALS: BMI 19.8
[~2017-08-08 13:36] MED LIST changes: +DOXYCYCLINE HY100 M2 PO
[2017-08-08 15:00] LABS: BASOPHILS 0 % (0-2); EOSINOPHILS 0.2 % (0-7); HEMOGLOBIN 8.6 g/dL (13.5-17.5); IMMATURE GRANULOCYTES 1.1 % (0-5); LYMPHOCYTES 7.2 % (15-50); MCH 26.8 pg (26.0-34.0); MCHC 29.7 g/dL (31.0-37.0); MCV 90.3 fL (80.0-100.0); MEAN PLATELET VOLUME 8.4 fL (7.4-10.4); MONOCYTES 1.7 % (2-11); NEUTROPHILS 89.8 % (40-80); RBC 3.21 10x6/uL (4.20-6.10); RDW 17.2 % (11.5-14.5); WBC 17.3 10x3/uL (4.8-10.8)
[2017-08-08 15:01] LABS: PLATELET COUNT 446 10x3/uL (130-400)
[2017-08-08 15:06] LABS: ALBUMIN 1.7 g/dL (3.4-5.0); ALKALINE PHOSPHATASE 93 U/L (46-116); ALT (SGPT) 8 U/L (10-68); BILIRUBIN - TOTAL 0.14 mg/dL (0.2-1.3); CALC OSMOLALITY 285 mosm/kg (275-300); CALCIUM 9.1 mg/dL (8.5-10.1); CARBON DIOXIDE 32.1 mmol/L (21.0-32.0); CHLORIDE - SERUM 100 mmol/L (98-107); CREATININE - SERUM 0.8 mg/dL (0.6-1.3); POTASSIUM - SERUM 3.9 mmol/L (3.5-5.1); PROTEIN - SERUM 6.2 g/dL (6.4-8.2); SODIUM 137 mmol/L (136-145); UREA NITROGEN 27 mg/dL (7-18); eGFR NON AFRICAN AMERICAN > 90 mL/min (90-120)
[2017-08-08 15:08] LABS: GLUCOSE 221 mg/dL (74-106)
[2017-08-08 15:35] LABS: APPEARANCE CLEAR (CLEAR); BILIRUBIN NEGATIVE (NEGATIVE); COLOR DK YELLOW (YELLOW); GLUCOSE 100 mg/dL (NEGATIVE); KETONE NEGATIVE (NEGATIVE); NITRITE NEGATIVE (NEGATIVE); PROTEIN TRACE mg/dL (NEGATIVE); SPECIFIC GRAVITY 1.015 (1.005-1.020); UROBILINOGEN NORMAL (NORMAL)
== END 2017-08-08 17:18 | disposition home or self-care (01) ==
LOC: D.ER 13:36
PROVIDERS: Family Medicine
DX: L03.116 Cellulitis of left lower limb (principal); D64.9 Anemia, unspecified; D72.829 Elevated white blood cell count, unspecified; M06.9 Rheumatoid arthritis, unspecified; Z74.01 Bed confinement status; I50.9 Heart failure, unspecified

== ENCOUNTER 2017-08-09 16:33 | Inpatient (IN) | payer MEDICARE ==
[~2017-08-09] VITALS: Ht 170.2 cm; Wt 49.9 kg
--- NOTE | ~2017-08-09 | CN ---
PATIENT NAME:SEKOU ELAINE MEDICAL RECORD: [id number] : 66 LOCATION:D.MS [id number] ADMIT DATE: 08/09/17 ACCOUNT: [id number] CONSULTING PHYSICIAN: PAMELA PILLAI MD REFERRING PHYSICIAN: DREA CRUZ MD DATE OF CONSULTATION: 08/13/2017 CARDIOLOGY CONSULT DIAGNOSES: 1. 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 2. Sepsis. 3. Multiple skin lesions. 4. GI bleed. 5. Anemia. 6. Rheumatoid arthritis. 7. 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 HISTORY: This is a gentleman who presents with sepsis syndrome secondary to multiple skin wounds and steroid dependence from rheumatoid arthritis as well as GI bleed. GI ofrrest, he was found to have superficial gastric ulcers. Hemoglobin of 7.8. He is being treated for this. Echocardiogram was obtained. 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 There is no significant tricuspid regurgitation. No other valvular heart disease. PHYSICAL EXAMINATION: GENERAL APPEARANCE: Well-nourished, well-developed, appears stated age. Level of distress, comfortable. PSYCHIATRIC: Mental status, alert, normal affect. Orientation, oriented to time, place and person. EYES: Lids and conjunctiva, noninjected. No discharge, no pallor. ENT: Lips, teeth, gums, normal dentition. Oropharynx, no cyanosis, no pallor. NECK: Carotid arteries, bilateral normal upstroke, no bruits, no thrills. JUGULAR VEINS: No jugular venous pressure or distention. CERVICAL LYMPH NODES: Nontender, nonenlarged. THYROID: Not enlarged. Nontender. No nodules. LUNGS: Respiratory effort, unlabored. CHEST: Normal curvature. No thoracic deformity. No chest wall tenderness. Percussion, resonant. Auscultation, clear. No wheezes, no rales, no rhonchi. CARDIOVASCULAR: Precordial exam, nondisplaced. No heaves or pericardial thrills. Rate and rhythm, regular. Heart sounds, normal S1, normal S2. No S3, no gallop, no rub. Systolic murmur, not heard. Diastolic murmur, not heard. EXTREMITIES: No cyanosis, no edema. Peripheral pulses, full and equal in all extremities, except as noted. No bruits appreciated. ABDOMEN: Soft, nondistended. Normal aorta. No bruit. Nontender. No masses. Liver, nontender, no hepatomegaly. Spleen, nontender, no splenomegaly. MUSCULOSKELETAL: No joint tenderness. No joint swelling. No erythema. NEUROLOGICAL: Normal gait, normal strength, normal tone. SKIN: Warm and dry. OVERALL IMPRESSION: Endocarditis, most likely secondary to steroid dependence and multiple skin lesions. At this time, he does not need valve surgery. I would consult ID for antibiotic treatment prolonged for the endocarditis; but with the valve integrity being intact, there is no reason to consider surgery at CONSULT REPORT [id number] SEKOU ELAINE this time. TRANSINT:[id number] Voice Confirmation ID: [id number] DOCUMENT ID: [id number] PAMELA PILLAI MD at 1025 CC: [id number] DICTATION DATE: 08/13/17 1230 ELECTRIC DETECTOR OPERATOR: 08/13/17 1721 ADM IN [facility] [address] [place] [address]
--- NOTE | ~2017-08-09 | EC ---
PATIENT:SEKOU ELAINE DATE OF SERVICE: 08/09/17 SEX: M MEDICAL RECORD: [id number] DATE OF : 66 LOCATION:D.MS [facility] AGE OF PATIENT: 47 ADMISSION DATE: 08/09/17 REFERRING PHYSICIAN: INTERPRETING PHYSICIAN: PAMELA PILLAI MD ECHOCARDIOGRAM REPORT ECHO CHARGES 5 ECHO LIMITED CLINICAL DIAGNOSIS: ASSESS FOR ENDOCARDITITIS, SEPTIC/ POSTIVE BLOOD CULT ECHOCARDIOGRAPHIC MEASUREMENTS (adult normal given) AC root (d.<3.7cm) 3.4 cm LV Septum d (<1.2 cm> 1.7 cm Valve Excursion 1.9 cm LV Septum (systole) 2.2 cm Left Atria (s.<4.0cm> 4.0 cm LVPW d(<1.2cm) 1.8 cm RV (d.<2.3cm) 2.6 cm LVPW (sytole) 1.9 cm LV diastole(<5.6CM) 4.6 cm MV E-F(>70mm/sec) cm LV systole 2.9 cm LVOT Diameter cm MV exc.(>10mm) 1.2 cm Est.ejection fraction (50-75%) % Pericardial Effusion N DOPPLER: LVIT cm/sec A cm/sec E cm/sec LA cm/sec RVSP mmHg LVOT cm/sec AOP1/2T m/s Asc. Ao cm/sec RVOT 55 cm/sec RA cm/sec PA 118 cm/sec AV Gradient Peak mmHg AV Mean mmHg AV Area cm MV Gradient Peak mmHg MV Mean mmHg MV Area cm COMMENTS: Can Cutter: Aure CAMOPS Informatica Developer: Aure Murry TAPE# PACS DATE OF SERVICE: 08/11/2017 Echocardiogram FINDINGS: 1. Left ventricular chamber size is within normal limits. Left ventricular systolic function is normal. Overall ejection fraction estimated at 55%. 2. Left atrium is upper limits of normal at 4.0 cm. Right atrium and right ventricular chamber sizes are mildly dilated. 3. Valvular structures: The tricuspid valve appears to have vegetation ECHOCARDIOGRAM REPORT [id number] SEKOU ELAINE compatible with endocarditis. Remaining valvular structures have normal structure and motion. 4. Doppler interrogation reveals no significant valvular insufficiency or stenosis. 5. No evidence of pericardial effusion or left ventricular thrombus. OVERALL IMPRESSION: Tricuspid valve appears to have a lesion compatible with vegetative endocarditis. TRANSINT:[id number] Voice Confirmation ID: [id number] DOCUMENT ID: [id number] PAMELA PILLAI MD at 1025 CC: [id number] DICTATION DATE: 08/11/17 1353 DATA ANALYST REPORT WRITER: 08/11/17 [address] [facility] [address] [place] [address]
[2017-08-09 17:42] LABS: BASOPHILS 0.1 % (0-2); EOSINOPHILS 0.2 % (0-7); HEMATOCRIT 30.9 % (42.0-54.0); HEMOGLOBIN 9.3 g/dL (13.5-17.5); IMMATURE GRANULOCYTES 2.2 % (0-5); LYMPHOCYTES 10.5 % (15-50); MCH 27.3 pg (26.0-34.0); MCHC 30.1 g/dL (31.0-37.0); MCV 90.6 fL (80.0-100.0); MEAN PLATELET VOLUME 8.2 fL (7.4-10.4); PLATELET COUNT 380 10x3/uL (130-400); RBC 3.41 10x6/uL (4.20-6.10); RDW 17.5 % (11.5-14.5)
[2017-08-09 17:45] LABS: INR 0.87 (0.85-1.17); PROTIME 11.5 SECONDS (11.6-15.0)
[2017-08-09 17:46] LABS: WBC 11.4 10x3/uL (4.8-10.8)
[2017-08-09 17:50] LABS: ALBUMIN 1.9 g/dL (3.4-5.0); ALKALINE PHOSPHATASE 106 U/L (46-116); ALT (SGPT) 9 U/L (10-68); CALCIUM 9.5 mg/dL (8.5-10.1); CARBON DIOXIDE 29.2 mmol/L (21.0-32.0); CHLORIDE - SERUM 99 mmol/L (98-107); CREATININE - SERUM 0.8 mg/dL (0.6-1.3); PROTEIN - SERUM 6.9 g/dL (6.4-8.2); SODIUM 137 mmol/L (136-145); UREA NITROGEN 24 mg/dL (7-18); URIC ACID 4.1 mg/dL (2.6-7.2); eGFR NON AFRICAN AMERICAN > 90 mL/min (90-120)
[2017-08-09 18:04] LABS: D-DIMER-QUANTITATIVE 3.89 ug/mLFEU (0.20-0.54)
[2017-08-09 18:07] LABS: CALC OSMOLALITY 280 mosm/kg (275-300); GLUCOSE 157 mg/dL (74-106); POTASSIUM - SERUM 4.5 mmol/L (3.5-5.1)
[2017-08-09 18:52] VITALS: BP 119/85; BMI 17.2
[2017-08-09 22:12] VITALS: BP 125/84
[2017-08-10 01:32] VITALS: BP 107/75
[2017-08-10 05:10] LABS: BASOPHILS 0.1 % (0-2); EOSINOPHILS 0.3 % (0-7); HEMATOCRIT 25.1 % (42.0-54.0); IMMATURE GRANULOCYTES 3.2 % (0-5); LYMPHOCYTES 9.7 % (15-50); MCH 26.9 pg (26.0-34.0); MCHC 29.9 g/dL (31.0-37.0); MONOCYTES 4.4 % (2-11); NEUTROPHILS 82.3 % (40-80); RBC 2.79 10x6/uL (4.20-6.10); RDW 17.6 % (11.5-14.5); WBC 11.9 10x3/uL (4.8-10.8)
[2017-08-10 05:19] LABS: HEMOGLOBIN 7.5 g/dL (13.5-17.5); PLATELET COUNT 252 10x3/uL (130-400)
[2017-08-10 05:50] LABS: CALCIUM 8.1 mg/dL (8.5-10.1); CARBON DIOXIDE 29.6 mmol/L (21.0-32.0); CHLORIDE - SERUM 100 mmol/L (98-107); CREATININE - SERUM 0.7 mg/dL (0.6-1.3); POTASSIUM - SERUM 4.1 mmol/L (3.5-5.1); SODIUM 137 mmol/L (136-145); eGFR NON AFRICAN AMERICAN > 90 mL/min (90-120)
[2017-08-10 05:58] LABS: CALC OSMOLALITY 275 mosm/kg (275-300); GLUCOSE 100 mg/dL (74-106); UREA NITROGEN 17 mg/dL (7-18)
[2017-08-10 06:33] VITALS: BP 109/70
[2017-08-10 09:20] VITALS: BP 132/79
[2017-08-10 12:20] VITALS: BP 129/84
[2017-08-10 12:56] VITALS: BMI 17.2
[2017-08-10 16:34] VITALS: BP 128/80
[2017-08-10 17:37] LABS: % SATURATION 8 % (15-55); IRON 11 ug/dl (35-150); TOTAL IRON BIND CAPACITY 129 ug/dl (260-445); UNSAT IRON BIND CAPACITY 118 ug/dl (150-375)
[2017-08-10 18:37] LABS: HEMATOCRIT 22.7 % (42.0-54.0)
[2017-08-10 18:54] LABS: HEMOGLOBIN 6.7 g/dL (13.5-17.5)
[2017-08-10 20:54] VITALS: BP 119/71
[2017-08-11 02:15] LABS: APPEARANCE HAZY (CLEAR); BILIRUBIN NEGATIVE (NEGATIVE); COLOR DK YELLOW (YELLOW); GLUCOSE 250 mg/dL (NEGATIVE); KETONE NEGATIVE (NEGATIVE); NITRITE NEGATIVE (NEGATIVE); PROTEIN NEGATIVE (NEGATIVE); UROBILINOGEN NORMAL (NORMAL)
[2017-08-11 04:00] VITALS: BP 138/76
[2017-08-11 05:35] LABS: BASOPHILS 0.1 % (0-2); EOSINOPHILS 0.2 % (0-7); HEMATOCRIT 27.2 % (42.0-54.0); LYMPHOCYTES 6.3 % (15-50); MCH 27.5 pg (26.0-34.0); MCHC 30.1 g/dL (31.0-37.0); MCV 91.3 fL (80.0-100.0); MEAN PLATELET VOLUME 8.3 fL (7.4-10.4); MONOCYTES 4.6 % (2-11); NEUTROPHILS 86.8 % (40-80); PLATELET COUNT 231 10x3/uL (130-400); RBC 2.98 10x6/uL (4.20-6.10); RDW 16.9 % (11.5-14.5)
[2017-08-11 06:05] LABS: CALC OSMOLALITY 276 mosm/kg (275-300); CALCIUM 7.7 mg/dL (8.5-10.1); CARBON DIOXIDE 29.6 mmol/L (21.0-32.0); CHLORIDE - SERUM 102 mmol/L (98-107); CREATININE - SERUM 0.7 mg/dL (0.6-1.3); GLUCOSE 102 mg/dL (74-106); POTASSIUM - SERUM 3.6 mmol/L (3.5-5.1); SODIUM 139 mmol/L (136-145); eGFR NON AFRICAN AMERICAN > 90 mL/min (90-120)
[2017-08-11 06:16] LABS: UREA NITROGEN 11 mg/dL (7-18)
[2017-08-11 06:17] LABS: HEMOGLOBIN 8.2 g/dL (13.5-17.5); WBC 16.9 10x3/uL (4.8-10.8)
[2017-08-11 20:00] VITALS: BP 123/91
[2017-08-12 04:00] VITALS: BP 116/80
[2017-08-12 06:06] LABS: BASOPHILS 0.1 % (0-2); EOSINOPHILS 0.3 % (0-7); HEMATOCRIT 30.7 % (42.0-54.0); HEMOGLOBIN 9.6 g/dL (13.5-17.5); IMMATURE GRANULOCYTES 1.6 % (0-5); LYMPHOCYTES 6.3 % (15-50); MCH 27.7 pg (26.0-34.0); MCHC 31.3 g/dL (31.0-37.0); MCV 88.7 fL (80.0-100.0); MEAN PLATELET VOLUME 8.7 fL (7.4-10.4); MONOCYTES 6.3 % (2-11); NEUTROPHILS 85.4 % (40-80); PLATELET COUNT 225 10x3/uL (130-400); RBC 3.46 10x6/uL (4.20-6.10); RDW 17.7 % (11.5-14.5); WBC 19.3 10x3/uL (4.8-10.8)
[2017-08-12 06:23] LABS: CALC OSMOLALITY 271 mosm/kg (275-300); CARBON DIOXIDE 27.5 mmol/L (21.0-32.0); CHLORIDE - SERUM 102 mmol/L (98-107); CREATININE - SERUM 0.6 mg/dL (0.6-1.3); GLUCOSE 95 mg/dL (74-106); POTASSIUM - SERUM 3.4 mmol/L (3.5-5.1); SODIUM 137 mmol/L (136-145); eGFR NON AFRICAN AMERICAN > 90 mL/min (90-120)
[2017-08-12 06:26] LABS: UREA NITROGEN 6 mg/dL (7-18)
[2017-08-12 06:33] LABS: HELICOBACTER PYLORI IGG NEGATIVE (NEGATIVE)
[2017-08-12 07:25] LABS: FOLATE (FOLIC ACID) - SERUM 6.6 ng/mL (>3.0)
[2017-08-12 08:04] VITALS: BP 135/88
[2017-08-12 12:23] VITALS: BP 133/83
[2017-08-12 15:48] VITALS: BP 102/68
[2017-08-12 20:00] VITALS: BP 126/81
[2017-08-12 23:53] VITALS: BP 122/73
[2017-08-13 04:00] VITALS: BP 129/84
[2017-08-13 06:24] LABS: BASOPHILS 0.1 % (0-2); EOSINOPHILS 0.6 % (0-7); HEMATOCRIT 25.3 % (42.0-54.0); HEMOGLOBIN 7.8 g/dL (13.5-17.5); IMMATURE GRANULOCYTES 0.7 % (0-5); LYMPHOCYTES 7.3 % (15-50); MCH 27.2 pg (26.0-34.0); MCHC 30.8 g/dL (31.0-37.0); MCV 88.2 fL (80.0-100.0); MEAN PLATELET VOLUME 8.6 fL (7.4-10.4); MONOCYTES 6.1 % (2-11); NEUTROPHILS 85.2 % (40-80); PLATELET COUNT 223 10x3/uL (130-400); RBC 2.87 10x6/uL (4.20-6.10); RDW 17.7 % (11.5-14.5); WBC 16.2 10x3/uL (4.8-10.8)
[2017-08-13 06:49] LABS: CALC OSMOLALITY 275 mosm/kg (275-300); CALCIUM 7.4 mg/dL (8.5-10.1); CARBON DIOXIDE 28.3 mmol/L (21.0-32.0); CREATININE - SERUM 0.6 mg/dL (0.6-1.3); GLUCOSE 99 mg/dL (74-106); SODIUM 140 mmol/L (136-145); UREA NITROGEN 5 mg/dL (7-18); VANCOMYCIN - TROUGH 20.5 ug/mL (10.0-20.0); eGFR NON AFRICAN AMERICAN > 90 mL/min (90-120)
[2017-08-13 06:55] LABS: CHLORIDE - SERUM 105 mmol/L (98-107)
[2017-08-13 07:00] LABS: POTASSIUM - SERUM 2.7 mmol/L (3.5-5.1)
[2017-08-13 08:18] VITALS: BP 129/87
[2017-08-13 12:27] VITALS: BP 123/82
[2017-08-13 13:55] VITALS: Ht 170.2 cm; Wt 49.9 kg
[2017-08-13 16:30] VITALS: BP 112/75
[2017-08-13 20:00] VITALS: BP 130/86
[2017-08-14 04:00] VITALS: BP 113/75
[2017-08-14 05:50] LABS: BASOPHILS 0.1 % (0-2); EOSINOPHILS 0.5 % (0-7); HEMATOCRIT 26.1 % (42.0-54.0); HEMOGLOBIN 7.9 g/dL (13.5-17.5); IMMATURE GRANULOCYTES 0.7 % (0-5); LYMPHOCYTES 8.3 % (15-50); MCH 27.1 pg (26.0-34.0); MCHC 30.3 g/dL (31.0-37.0); MCV 89.4 fL (80.0-100.0); MEAN PLATELET VOLUME 8.5 fL (7.4-10.4); MONOCYTES 5.3 % (2-11); NEUTROPHILS 85.1 % (40-80); PLATELET COUNT 286 10x3/uL (130-400); RBC 2.92 10x6/uL (4.20-6.10); RDW 17.7 % (11.5-14.5); WBC 15.2 10x3/uL (4.8-10.8)
[2017-08-14 06:15] LABS: CALCIUM 7.4 mg/dL (8.5-10.1); CHLORIDE - SERUM 106 mmol/L (98-107); CREATININE - SERUM 0.5 mg/dL (0.6-1.3); GLUCOSE 96 mg/dL (74-106); SODIUM 141 mmol/L (136-145); eGFR NON AFRICAN AMERICAN > 90 mL/min (90-120)
[2017-08-14 06:16] LABS: CALC OSMOLALITY 277 mosm/kg (275-300); POTASSIUM - SERUM 3.7 mmol/L (3.5-5.1); UREA NITROGEN 3 mg/dL (7-18)
[2017-08-14 08:33] VITALS: BP 111/69
[2017-08-14 12:08] VITALS: BP 120/76
[2017-08-14 15:40] VITALS: BP 116/68
[2017-08-14 20:00] VITALS: BP 136/86
[2017-08-15 04:00] VITALS: BP 141/91
[2017-08-15 05:47] LABS: BASOPHILS 0.2 % (0-2); HEMATOCRIT 29.4 % (42.0-54.0); HEMOGLOBIN 8.8 g/dL (13.5-17.5); IMMATURE GRANULOCYTES 0.6 % (0-5); LYMPHOCYTES 9.7 % (15-50); MCH 27.2 pg (26.0-34.0); MCHC 29.9 g/dL (31.0-37.0); MCV 90.7 fL (80.0-100.0); MEAN PLATELET VOLUME 8.5 fL (7.4-10.4); MONOCYTES 6.6 % (2-11); NEUTROPHILS 81.9 % (40-80); PLATELET COUNT 319 10x3/uL (130-400); RBC 3.24 10x6/uL (4.20-6.10); RDW 17.3 % (11.5-14.5); WBC 14.6 10x3/uL (4.8-10.8)
[2017-08-15 06:03] LABS: CALC OSMOLALITY 274 mosm/kg (275-300); CALCIUM 7.9 mg/dL (8.5-10.1); CARBON DIOXIDE 30.1 mmol/L (21.0-32.0); CHLORIDE - SERUM 103 mmol/L (98-107); CREATININE - SERUM 0.6 mg/dL (0.6-1.3); GLUCOSE 98 mg/dL (74-106); POTASSIUM - SERUM 3.5 mmol/L (3.5-5.1); SODIUM 139 mmol/L (136-145); UREA NITROGEN 3 mg/dL (7-18); eGFR NON AFRICAN AMERICAN > 90 mL/min (90-120)
[2017-08-15 09:29] VITALS: BP 122/82
[2017-08-15 14:18] VITALS: BP 121/73
[2017-08-15 20:00] VITALS: BP 123/84
[2017-08-16 04:00] VITALS: BP 112/77
[2017-08-16 06:52] LABS: BASOPHILS 0.3 % (0-2); EOSINOPHILS 0.5 % (0-7); HEMATOCRIT 30.4 % (42.0-54.0); HEMOGLOBIN 9.2 g/dL (13.5-17.5); LYMPHOCYTES 10.3 % (15-50); MCH 27.5 pg (26.0-34.0); MCHC 30.3 g/dL (31.0-37.0); MCV 90.7 fL (80.0-100.0); MEAN PLATELET VOLUME 8.6 fL (7.4-10.4); MONOCYTES 8.3 % (2-11); NEUTROPHILS 79.6 % (40-80); RBC 3.35 10x6/uL (4.20-6.10); RDW 17.2 % (11.5-14.5); WBC 11.5 10x3/uL (4.8-10.8)
[2017-08-16 07:10] LABS: PLATELET COUNT 427 10x3/uL (130-400)
[2017-08-16 07:27] LABS: ALBUMIN 1.4 g/dL (3.4-5.0); ALKALINE PHOSPHATASE 93 U/L (46-116); ALT (SGPT) 4 U/L (10-68); CALC OSMOLALITY 273 mosm/kg (275-300); CALCIUM 7.8 mg/dL (8.5-10.1); CARBON DIOXIDE 35.3 mmol/L (21.0-32.0); CHLORIDE - SERUM 101 mmol/L (98-107); CREATININE - SERUM 0.6 mg/dL (0.6-1.3); GLUCOSE 86 mg/dL (74-106); POTASSIUM - SERUM 3.6 mmol/L (3.5-5.1); PROTEIN - SERUM 5.2 g/dL (6.4-8.2); SODIUM 139 mmol/L (136-145); eGFR NON AFRICAN AMERICAN > 90 mL/min (90-120)
[2017-08-16 07:28] LABS: UREA NITROGEN 4 mg/dL (7-18)
[2017-08-16 08:26] VITALS: BP 125/78
[2017-08-16 11:56] VITALS: BP 120/77
[2017-08-16 16:17] VITALS: BP 110/68
[2017-08-16 22:57] VITALS: BP 146/90
[2017-08-17] VITALS (7 sets, daily range): BP systolic 105–150; BP diastolic 55–96
[2017-08-17 05:24] LABS: BASOPHILS 0.1 % (0-2); EOSINOPHILS 0.3 % (0-7); HEMATOCRIT 31.1 % (42.0-54.0); HEMOGLOBIN 9.5 g/dL (13.5-17.5); IMMATURE GRANULOCYTES 1.5 % (0-5); LYMPHOCYTES 16.6 % (15-50); MCH 27.4 pg (26.0-34.0); MCHC 30.5 g/dL (31.0-37.0); MCV 89.6 fL (80.0-100.0); MEAN PLATELET VOLUME 8.3 fL (7.4-10.4); MONOCYTES 11.8 % (2-11); NEUTROPHILS 69.7 % (40-80); PLATELET COUNT 485 10x3/uL (130-400); RBC 3.47 10x6/uL (4.20-6.10); RDW 17.3 % (11.5-14.5); WBC 10.5 10x3/uL (4.8-10.8)
[2017-08-17 05:55] LABS: ALBUMIN 1.6 g/dL (3.4-5.0); ALKALINE PHOSPHATASE 101 U/L (46-116); ALT (SGPT) 4 U/L (10-68); CALC OSMOLALITY 271 mosm/kg (275-300); CALCIUM 8.1 mg/dL (8.5-10.1); CHLORIDE - SERUM 99 mmol/L (98-107); CREATININE - SERUM 0.7 mg/dL (0.6-1.3); GLUCOSE 90 mg/dL (74-106); POTASSIUM - SERUM 3.9 mmol/L (3.5-5.1); PROTEIN - SERUM 5.9 g/dL (6.4-8.2); SODIUM 137 mmol/L (136-145); eGFR NON AFRICAN AMERICAN > 90 mL/min (90-120)
[2017-08-17 06:00] LABS: UREA NITROGEN 6 mg/dL (7-18)
[2017-08-18 04:00] VITALS: BP 166/85
[2017-08-18 05:59] LABS: BASOPHILS 0.2 % (0-2); EOSINOPHILS 0 % (0-7); HEMATOCRIT 30.3 % (42.0-54.0); HEMOGLOBIN 9.2 g/dL (13.5-17.5); IMMATURE GRANULOCYTES 1.7 % (0-5); LYMPHOCYTES 12.6 % (15-50); MCH 26.9 pg (26.0-34.0); MCHC 30.4 g/dL (31.0-37.0); MCV 88.6 fL (80.0-100.0); MEAN PLATELET VOLUME 7.9 fL (7.4-10.4); MONOCYTES 13.7 % (2-11); NEUTROPHILS 71.8 % (40-80); PLATELET COUNT 434 10x3/uL (130-400); RBC 3.42 10x6/uL (4.20-6.10); RDW 17.1 % (11.5-14.5); WBC 9.5 10x3/uL (4.8-10.8)
[2017-08-18 06:22] LABS: ALBUMIN 1.6 g/dL (3.4-5.0); ALKALINE PHOSPHATASE 105 U/L (46-116); BILIRUBIN - TOTAL 0.39 mg/dL (0.2-1.3); CALCIUM 7.7 mg/dL (8.5-10.1); CARBON DIOXIDE 29.8 mmol/L (21.0-32.0); CHLORIDE - SERUM 97 mmol/L (98-107); CREATININE - SERUM 0.6 mg/dL (0.6-1.3); GLUCOSE 78 mg/dL (74-106); POTASSIUM - SERUM 3.5 mmol/L (3.5-5.1); SODIUM 135 mmol/L (136-145); eGFR NON AFRICAN AMERICAN > 90 mL/min (90-120)
[2017-08-18 06:23] LABS: ALT (SGPT) 5 U/L (10-68); CALC OSMOLALITY 266 mosm/kg (275-300); UREA NITROGEN 8 mg/dL (7-18)
[2017-08-18 08:13] VITALS: BP 132/85
[2017-08-18 12:13] VITALS: BP 123/81
[2017-08-18 17:20] VITALS: BP 126/83
[2017-08-18 20:10] VITALS: BP 128/80
[2017-08-18 23:43] VITALS: BP 131/80
[2017-08-19 04:17] VITALS: BP 121/80
[2017-08-19 06:48] LABS: BASOPHILS 0.2 % (0-2); EOSINOPHILS 0.1 % (0-7); HEMATOCRIT 28.9 % (42.0-54.0); HEMOGLOBIN 8.8 g/dL (13.5-17.5); IMMATURE GRANULOCYTES 1.8 % (0-5); LYMPHOCYTES 14.4 % (15-50); MCH 26.7 pg (26.0-34.0); MCHC 30.4 g/dL (31.0-37.0); MCV 87.6 fL (80.0-100.0); MONOCYTES 17.2 % (2-11); NEUTROPHILS 66.3 % (40-80); PLATELET COUNT 482 10x3/uL (130-400); WBC 8.2 10x3/uL (4.8-10.8)
[2017-08-19 07:01] LABS: ALBUMIN 1.6 g/dL (3.4-5.0); ALKALINE PHOSPHATASE 98 U/L (46-116); ALT (SGPT) 5 U/L (10-68); BILIRUBIN - TOTAL 0.38 mg/dL (0.2-1.3); CALC OSMOLALITY 272 mosm/kg (275-300); CALCIUM 7.9 mg/dL (8.5-10.1); CARBON DIOXIDE 26.9 mmol/L (21.0-32.0); CHLORIDE - SERUM 97 mmol/L (98-107); CREATININE - SERUM 0.7 mg/dL (0.6-1.3); GLUCOSE 91 mg/dL (74-106); POTASSIUM - SERUM 3.7 mmol/L (3.5-5.1); PROTEIN - SERUM 6.3 g/dL (6.4-8.2); SODIUM 137 mmol/L (136-145); UREA NITROGEN 11 mg/dL (7-18); eGFR NON AFRICAN AMERICAN > 90 mL/min (90-120)
[2017-08-19 09:41] VITALS: BP 128/92
[2017-08-19 12:14] VITALS: BP 137/85
[2017-08-19 19:57] VITALS: BP 110/72
[2017-08-20] VITALS: BP 130/83
[2017-08-20 04:00] VITALS: BP 152/90
[2017-08-20 06:40] LABS: BASOPHILS 0.4 % (0-2); EOSINOPHILS 0 % (0-7); HEMATOCRIT 28.7 % (42.0-54.0); HEMOGLOBIN 8.6 g/dL (13.5-17.5); LYMPHOCYTES 17.5 % (15-50); MCH 26.5 pg (26.0-34.0); MCV 88.6 fL (80.0-100.0); MEAN PLATELET VOLUME 7.9 fL (7.4-10.4); MONOCYTES 16.2 % (2-11); NEUTROPHILS 63.9 % (40-80); PLATELET COUNT 446 10x3/uL (130-400); RBC 3.24 10x6/uL (4.20-6.10)
[2017-08-20 06:42] LABS: WBC 5.6 10x3/uL (4.8-10.8)
[2017-08-20 07:24] LABS: ALBUMIN 1.6 g/dL (3.4-5.0); ALKALINE PHOSPHATASE 93 U/L (46-116); CALCIUM 7.9 mg/dL (8.5-10.1); CARBON DIOXIDE 30.9 mmol/L (21.0-32.0); CHLORIDE - SERUM 98 mmol/L (98-107); CREATININE - SERUM 0.6 mg/dL (0.6-1.3); GLUCOSE 83 mg/dL (74-106); PROTEIN - SERUM 6.1 g/dL (6.4-8.2); SODIUM 137 mmol/L (136-145); eGFR NON AFRICAN AMERICAN > 90 mL/min (90-120)
[2017-08-20 07:25] LABS: ALT (SGPT) 3 U/L (10-68); CALC OSMOLALITY 270 mosm/kg (275-300); POTASSIUM - SERUM 3.1 mmol/L (3.5-5.1); UREA NITROGEN 8 mg/dL (7-18)
[2017-08-20 10:28] VITALS: BP 134/93
[2017-08-20 21:35] VITALS: BP 131/82
[2017-08-20 23:22] VITALS: BP 146/89
[2017-08-21 04:52] VITALS: BP 140/84
[2017-08-21 06:05] LABS: BASOPHILS 0.4 % (0-2); EOSINOPHILS 0.2 % (0-7); HEMATOCRIT 28.9 % (42.0-54.0); HEMOGLOBIN 8.7 g/dL (13.5-17.5); IMMATURE GRANULOCYTES 2.6 % (0-5); LYMPHOCYTES 24.9 % (15-50); MCH 26.8 pg (26.0-34.0); MCHC 30.1 g/dL (31.0-37.0); MCV 88.9 fL (80.0-100.0); MEAN PLATELET VOLUME 7.9 fL (7.4-10.4); MONOCYTES 15.8 % (2-11); NEUTROPHILS 56.1 % (40-80); PLATELET COUNT 439 10x3/uL (130-400); RBC 3.25 10x6/uL (4.20-6.10); RDW 16.7 % (11.5-14.5); WBC 5.4 10x3/uL (4.8-10.8)
[2017-08-21 07:05] LABS: ALBUMIN 1.5 g/dL (3.4-5.0); ALKALINE PHOSPHATASE 87 U/L (46-116); ALT (SGPT) 4 U/L (10-68); CALC OSMOLALITY 272 mosm/kg (275-300); CALCIUM 7.8 mg/dL (8.5-10.1); CARBON DIOXIDE 31.3 mmol/L (21.0-32.0); CHLORIDE - SERUM 100 mmol/L (98-107); CREATININE - SERUM 0.5 mg/dL (0.6-1.3); GLUCOSE 84 mg/dL (74-106); POTASSIUM - SERUM 3.6 mmol/L (3.5-5.1); PROTEIN - SERUM 6.1 g/dL (6.4-8.2); SODIUM 138 mmol/L (136-145); UREA NITROGEN 6 mg/dL (7-18); eGFR NON AFRICAN AMERICAN > 90 mL/min (90-120)
[2017-08-21 09:22] VITALS: BP 140/97
== END 2017-08-21 16:44 | disposition home health service (06) | DRG 871 ==
LOC: D.MS 16:33
PROVIDERS: Emergency Medicine; Family Medicine; Internal Medicine Gastroenterology; Internal Medicine Nephrology
PROC: 0DJ08ZZ Inspection of Upper Intestinal Tract, Via Natural or Artificial Opening Endoscopic (ICD-10-PCS; 2017-08-11)
PROC: 3E0G8GC Introduction of Other Therapeutic Substance into Upper GI, Via Natural or Artificial Opening Endoscopic (ICD-10-PCS; principal; 2017-08-11 10:00)
PROC: 02HV33Z Insertion of Infusion Device into Superior Vena Cava, Percutaneous Approach (ICD-10-PCS; 2017-08-16)
DX: A41.9 Sepsis, unspecified organism (principal); R53.2 Functional quadriplegia; I33.0 Acute and subacute infective endocarditis; J18.9 Pneumonia, unspecified organism; G93.40 Encephalopathy, unspecified; K29.01 Acute gastritis with bleeding; J96.22 Acute and chronic respiratory failure with hypercapnia; D62 Acute posthemorrhagic anemia; I50.22 Chronic systolic (congestive) heart failure; F17.203 Nicotine dependence unspecified, with withdrawal; L03.116 Cellulitis of left lower limb; M06.9 Rheumatoid arthritis, unspecified; J44.9 Chronic obstructive pulmonary disease, unspecified; M10.9 Gout, unspecified; G89.29 Other chronic pain; S31.000A Unspecified open wound of lower back and pelvis without penetration into retroperitoneum, initial encounter; B95.61 Methicillin susceptible Staphylococcus aureus infection as the cause of diseases classified elsewhere; I11.0 Hypertensive heart disease with heart failure; G47.33 Obstructive sleep apnea (adult) (pediatric); R00.0 Tachycardia, unspecified; L40.9 Psoriasis, unspecified; K29.80 Duodenitis without bleeding; K21.0 Gastro-esophageal reflux disease with esophagitis

== ENCOUNTER → 2017-08-28 18:01 | Outpatient (CLI) | payer MEDICARE ==
[2017-08-13 13:55] VITALS: BMI 17.2
[2017-08-28 20:04] LABS: BASOPHILS 0.1 % (0-2); EOSINOPHILS 0.8 % (0-7); HEMATOCRIT 29.5 % (42.0-54.0); HEMOGLOBIN 8.6 g/dL (13.5-17.5); IMMATURE GRANULOCYTES 4.1 % (0-5); LYMPHOCYTES 8.5 % (15-50); MCH 26.6 pg (26.0-34.0); MCHC 29.2 g/dL (31.0-37.0); MCV 91.3 fL (80.0-100.0); MEAN PLATELET VOLUME 9.1 fL (7.4-10.4); MONOCYTES 4.5 % (2-11); PLATELET COUNT 466 10x3/uL (130-400); RBC 3.23 10x6/uL (4.20-6.10); WBC 15.8 10x3/uL (4.8-10.8)
[2017-08-28 20:14] LABS: C-REACTIVE PROTEIN 7.2 mg/dL (0.0-0.9); CREATININE - SERUM 0.7 mg/dL (0.6-1.3)
[2017-08-28 21:09] LABS: ERYTHROCYTE SEDIMENTATION RATE 9 mm/hr (0-15)
== END | disposition home or self-care (01) ==
LOC: D.LABREF 18:01
PROVIDERS: Emergency Medicine
DX: M06.9 Rheumatoid arthritis, unspecified (principal); A49.02 Methicillin resistant Staphylococcus aureus infection, unspecified site; I33.0 Acute and subacute infective endocarditis

== ENCOUNTER → 2017-09-01 13:55 | Outpatient (CLI) | payer MEDICARE ==
[2017-08-13 13:55] VITALS: BMI 17.2
== END | disposition home or self-care (01) ==
LOC: D.LABREF 13:55
DX: S81.002D Unspecified open wound, left knee, subsequent encounter (principal)

== ENCOUNTER → 2017-09-06 17:57 | Outpatient (CLI) | payer MEDICARE ==
[2017-08-13 13:55] VITALS: BMI 17.2
== END | disposition home or self-care (01) ==
LOC: D.LABREF 17:57
DX: L03.032 Cellulitis of left toe (principal); I33.0 Acute and subacute infective endocarditis

== ENCOUNTER → 2017-09-11 13:14 | Outpatient (CLI) | payer MEDICARE ==
[2017-08-13 13:55] VITALS: BMI 17.2
[2017-09-11 16:23] LABS: HEMATOCRIT 29.1 % (42.0-54.0); HEMOGLOBIN 9.2 g/dL (13.5-17.5); LYMPHOCYTES 14.4 % (15-50); MCHC 31.6 g/dL (31.0-37.0); MCV 94.8 fL (80.0-100.0); MEAN PLATELET VOLUME 7.6 fL (7.4-10.4); NEUTROPHILS 80.6 % (40-80); PLATELET COUNT 474 10x3/uL (130-400); RBC 3.07 10x6/uL (4.20-6.10); RDW 20.7 % (11.5-14.5); WBC 12.2 10x3/uL (4.8-10.8)
[2017-09-11 16:30] LABS: C-REACTIVE PROTEIN 0.3 mg/dL (0.0-0.9); CREATININE - SERUM 0.7 mg/dL (0.6-1.3)
[2017-09-11 17:27] LABS: ERYTHROCYTE SEDIMENTATION RATE 40 mm/hr (0-15)
== END | disposition home or self-care (01) ==
LOC: D.LABREF 13:14
PROVIDERS: Emergency Medicine
DX: I33.0 Acute and subacute infective endocarditis (principal); Z51.81 Encounter for therapeutic drug level monitoring; Z79.2 Long term (current) use of antibiotics; A49.02 Methicillin resistant Staphylococcus aureus infection, unspecified site

== ENCOUNTER → 2017-09-18 11:52 | Outpatient (CLI) | payer MEDICARE ==
[2017-08-13 13:55] VITALS: BMI 17.2
[2017-09-18 12:58] LABS: C-REACTIVE PROTEIN 1.2 mg/dL (0.0-0.9); CREATININE - SERUM 0.5 mg/dL (0.6-1.3)
[2017-09-18 14:01] LABS: ERYTHROCYTE SEDIMENTATION RATE 33 mm/hr (0-15)
[2017-09-18 14:02] LABS: BASOPHILS 0.6 % (0-2); EOSINOPHILS 3.5 % (0-7); HEMATOCRIT 37.4 % (42.0-54.0); HEMOGLOBIN 11.2 g/dL (13.5-17.5); IMMATURE GRANULOCYTES 3.9 % (0-5); LYMPHOCYTES 25.3 % (15-50); MCH 29.6 pg (26.0-34.0); MCHC 29.9 g/dL (31.0-37.0); MCV 98.7 fL (80.0-100.0); MEAN PLATELET VOLUME 8.4 fL (7.4-10.4); MONOCYTES 7.7 % (2-11); RBC 3.79 10x6/uL (4.20-6.10); RDW 22.5 % (11.5-14.5); WBC 15.1 10x3/uL (4.8-10.8)
[2017-09-18 14:04] LABS: PLATELET COUNT 341 10x3/uL (130-400)
== END | disposition home or self-care (01) ==
LOC: D.LABREF 11:52
PROVIDERS: Emergency Medicine
DX: B95.61 Methicillin susceptible Staphylococcus aureus infection as the cause of diseases classified elsewhere (principal); I10 Essential (primary) hypertension; I33.0 Acute and subacute infective endocarditis

== ENCOUNTER → 2017-09-25 13:57 | Outpatient (CLI) | payer MEDICARE ==
[2017-08-13 13:55] VITALS: BMI 17.2
[2017-09-25 14:56] LABS: BASOPHILS 0.4 % (0-2); EOSINOPHILS 2.7 % (0-7); HEMATOCRIT 36.1 % (42.0-54.0); HEMOGLOBIN 10.6 g/dL (13.5-17.5); IMMATURE GRANULOCYTES 2.5 % (0-5); LYMPHOCYTES 25.6 % (15-50); MCH 29.9 pg (26.0-34.0); MCHC 29.4 g/dL (31.0-37.0); MCV 101.7 fL (80.0-100.0); MEAN PLATELET VOLUME 8.4 fL (7.4-10.4); MONOCYTES 6.5 % (2-11); NEUTROPHILS 62.3 % (40-80); PLATELET COUNT 320 10x3/uL (130-400); RBC 3.55 10x6/uL (4.20-6.10); RDW 21.5 % (11.5-14.5); WBC 14.9 10x3/uL (4.8-10.8)
[2017-09-25 15:13] LABS: C-REACTIVE PROTEIN 0.3 mg/dL (0.0-0.9); CREATININE - SERUM 0.4 mg/dL (0.6-1.3)
[2017-09-25 16:17] LABS: ERYTHROCYTE SEDIMENTATION RATE 20 mm/hr (0-15)
== END | disposition home or self-care (01) ==
LOC: D.LABREF 13:57
PROVIDERS: Emergency Medicine
DX: I33.0 Acute and subacute infective endocarditis (principal); B95.61 Methicillin susceptible Staphylococcus aureus infection as the cause of diseases classified elsewhere

== ENCOUNTER 2019-08-09 16:57 | Inpatient (IN) | payer MEDICARE ==
[2019-08-09] VITALS (21 sets, daily range): BP systolic 85–127; BP diastolic 51–78
[~2019-08-09] VITALS: Ht 170.2 cm; Wt 77.5 kg
[2019-08-09] MEDS ORDERED: XELJANZ5 MG PO (17:23)
[2019-08-09] MEDS ORDERED: ALBUTEROL SULF8.5 GM INH (17:25)
[2019-08-09] MEDS ORDERED: COZAAR100 MG PO (17:25)
[2019-08-09] MEDS ORDERED: AZULFIDINE500 MG PO (17:26)
[2019-08-09 17:31] LABS: HEMATOCRIT 34.5 % (42.0-54.0); MCHC 31.9 g/dL (31.0-37.0); MCV 97.2 fL (80.0-100.0); MEAN PLATELET VOLUME 9.1 fL (7.4-10.4); PLATELET COUNT 489 10x3/uL (130-400); RBC 3.55 10x6/uL (4.20-6.10); RDW 16.3 % (11.5-14.5)
[2019-08-09 17:32] LABS: APTT 34.1 SECONDS (22.8-39.4); INR 1.06 (0.85-1.17); PROTIME 13.8 SECONDS (11.6-15.0)
[2019-08-09 17:36] LABS: CALC OSMOLALITY 291 mosm/kg (275-300); CARBON DIOXIDE 21.1 mmol/L (21.0-32.0); CHLORIDE - SERUM 100 mmol/L (98-107); CREATININE - SERUM 4.8 mg/dL (0.6-1.3); POTASSIUM - SERUM 3.6 mmol/L (3.5-5.1); SODIUM 137 mmol/L (136-145); UREA NITROGEN 55 mg/dL (7-18); eGFR NON AFRICAN AMERICAN 14 mL/min (90-120)
[2019-08-09 17:38] LABS: GLUCOSE 156 mg/dL (74-106)
[2019-08-09 17:50] LABS: BASOPHILS 1 % (0-2); LYMPHOCYTES 26 % (15-50); MONOCYTES 1 % (2-11); NEUTROPHILS 68 % (40-80); PLATELET ESTIMATE INCREASED
[2019-08-09 18:04] LABS: ALKALINE PHOSPHATASE 81 U/L (46-116); ALT (SGPT) 11 U/L (10-68); BILIRUBIN - TOTAL 0.24 mg/dL (0.2-1.3); CREATINE KINASE 269 UL (21-232); PROTEIN - SERUM 5.5 g/dL (6.4-8.2)
[2019-08-09 18:07] LABS: TROPONIN-I < 0.017 ng/mL (0.000-0.060)
--- NOTE | 2019-08-09 18:43 | NUR ---
INCREASED DOPAMINE 10MIC/MIN. PTS BLOOD PRESSURE 85/56 TEMP 96.3. BEAR HUGGER TURNED DOWN TO 38. PT AROUSES EASILY. STILL NO URINE IN EASTMAN CATH. CONT. TO MONITOR. 3 LITERS OF FLUID HAS INFUSED. IV FLUIDS RUNNING PT ASHLEIGH. WELL.
--- NOTE | 2019-08-09 19:00 | NUR ---
ASSUMED CARE OF PATIENT, STARTING MEDICATIONS PER ORDER, PATIENT IS RESPONSIVE ANSWERING SIMPLE QUESTIONS, FAMILY AT BEDSIDE. WOUND TO LEFT LOWER LEG CLEANED WITH NS AND STERI STRIP PER MD ORDER. NURSE REPORTS THAT WOUND CULTURE TO LEFT FOOT SENT. EASTMAN DRAINING DARK PRESTON CLOUDY URINE.
[2019-08-09 19:25] LABS: MAGNESIUM - SERUM 1.9 mg/dL (1.8-2.4); THYROID STIMULATING HORMONE 1.57 uIU/mL (0.36-3.74)
[2019-08-09 20:08] LABS: APPEARANCE CLOUDY (CLEAR); COLOR DK YELLOW (YELLOW); GLUCOSE NEGATIVE (NEGATIVE); KETONE NEGATIVE (NEGATIVE); NITRITE NEGATIVE (NEGATIVE); PROTEIN 1+ mg/dL (NEGATIVE)
[2019-08-09 20:09] LABS: BILIRUBIN NEGATIVE (NEGATIVE); UROBILINOGEN NORMAL (NORMAL)
[2019-08-09 20:10] LABS: AMORPHOUS SEDIMENT >1+ /lpf (NONE SEEN); BACTERIA FEW /hpf (NEGATIVE); RED CELLS - URINE 0-5 /hpf (0-5); WHITE CELLS - URINE OCC /hpf (NEGATIVE)
--- NOTE | 2019-08-09 20:23 | NUR ---
CALLED ICU, PATIENT WILL GO TO ROOM 2308, ALTHOUGH, CURRENTLY THERE IS A PATIENT IN THAT ROOM THAT WILL TRANSFER OUT, AND THAN WW WILL WAIT FOR ROOM TO BE CLEANED.
--- NOTE | 2019-08-09 20:30 | NUR ---
dopamine infusion stopped @ 191 telflaro stopped @ 1920 KCL STOPPED @ 2029
--- NOTE | 2019-08-09 21:59 | NUR ---
PATIENT RESTING QUIETLY AT THIS TIME, RESPONDS WHEN I CALL HIS NAME, ANSWERS APPROPRIATELY. MEDICATIONS INFUSING PER ORDER, BEING MONITORED CLOSELY.
[2019-08-09 22:19] LABS: ANION GAP 18.9 mmol/L (8-16); CARBON DIOXIDE 20.9 mmol/L (21.0-32.0); CREATININE - SERUM 3.4 mg/dL (0.6-1.3); POTASSIUM - SERUM 3.8 mmol/L (3.5-5.1)
[2019-08-09 22:20] LABS: CALCIUM 6.6 mg/dL (8.5-10.1)
[2019-08-10] VITALS (92 sets, daily range): BP systolic 69–138; BP diastolic 43–93; Ht 170.2 cm; Wt 77.5 kg
--- NOTE | 2019-08-10 01:00 | NUR ---
RESTING WITH EYES CLOSED, EASILY ROUSED AND ALERT.VSS
--- NOTE | 2019-08-10 03:00 | NUR ---
RESTING WITH EYES CLOSED, EASILY ROUSED AND ALERT. VSS. CONT ON IV PRESSOR SUPPORT. REASSESSMENT COMPLETED PER FLOW SHEET WITH NO ACUTE DISTRESS OBSERVED. CALL LIGHT IN REACH
[2019-08-10 04:56] LABS: BASOPHILS 0.3 % (0-2); EOSINOPHILS 2.9 % (0-7); HEMATOCRIT 31.9 % (42.0-54.0); HEMOGLOBIN 10.2 g/dL (13.5-17.5); IMMATURE GRANULOCYTES 1.3 % (0-5); LYMPHOCYTES 10.9 % (15-50); MEAN PLATELET VOLUME 9.3 fL (7.4-10.4); MONOCYTES 7.9 % (2-11); NEUTROPHILS 76.7 % (40-80); PLATELET COUNT 484 10x3/uL (130-400); RBC 3.29 10x6/uL (4.20-6.10); RDW 16.3 % (11.5-14.5); WBC 16.4 10x3/uL (4.8-10.8)
--- NOTE | 2019-08-10 05:00 | NUR ---
RESTING WITH EYES CLOSED, EASILY ROUSED AND ALERT, VSS
[2019-08-10 05:03] LABS: ALBUMIN 1.7 g/dL (3.4-5.0); ANION GAP 18.9 mmol/L (8-16); BILIRUBIN - TOTAL 0.2 mg/dL (0.2-1.3); CARBON DIOXIDE 19.3 mmol/L (21.0-32.0); CREATININE - SERUM 2.4 mg/dL (0.6-1.3); POTASSIUM - SERUM 3.2 mmol/L (3.5-5.1); PROTEIN - SERUM 5.5 g/dL (6.4-8.2)
[2019-08-10 05:04] LABS: CALCIUM 6.5 mg/dL (8.5-10.1)
[2019-08-10 05:58] LABS: MAGNESIUM - SERUM 1.5 mg/dL (1.8-2.4)
[2019-08-10 05:59] LABS: PHOSPHOROUS 4.6 mg/dL (2.5-4.9)
--- NOTE | 2019-08-10 07:30 | NUR ---
REPORT RECEIVED. PT IS RESTING QUIETLY. ALERT AND ORIENTED. PT HAS A LEFT AC IV AND RIGHT AC IV. SEE IV FLOWSHEET. PT'S LUNGS SOUND WHEEZY, INS AND EXP. PT ON O2 AT 3L VIA NC. HAS A CRITICORE RAIZA. PT ADMITTED LAST NIGHT FOR SEPSIS. ON A LEVAPHED DRIP. PT IS NPO AT THIS TIME. HE HAS A WOUND TO THE BOTTOM OF HIS LEFT FOOT. DRESSING INTACT. REPLACING POTASSIUM AND MAGNESIUM AT THIS TIME. VSS. WILL CONTINUE TO MONITOR.
--- NOTE | 2019-08-10 09:51 | NUR ---
PT RESTING QUIETLY. LEVAPHED INCREASED D/T BP. WILL CONTINUE TO MONITOR.
--- NOTE | 2019-08-10 11:00 | NUR ---
PT RESTING QUIETLY. VSS.
--- NOTE | 2019-08-10 12:43 | NUR ---
AT BEDSIDE. SHIPYARD LABORER IN ROOM. TITRATED LEVOPHED. VSS. WILL CONTINUE TO MONITOR.
--- NOTE | 2019-08-10 14:10 | NUR ---
PT RESTING QUIETLY. LEVOPHED TITRATED DOWN, PER PROTOCOL. VSS. WILL CONTINUE TO MONITOR. CALL LIGHT IN REACH.
--- NOTE | 2019-08-10 15:45 | NUR ---
VSS. PT RESTING WITH NO S/S OF DISTRESS. WILL CONTINUE TO MONITOR.
--- NOTE | 2019-08-10 17:45 | NUR ---
PT REPOSITIONED. ANTIBIOTIC INFUSING. REPLACING POTASSIUM PER ELECTROLYTE PROTOCOL. VSS. WILL CONTINUE TO MONITOR.
--- NOTE | 2019-08-10 21:36 | NUR ---
RECHECK OF POTASSIUM 4.4, NO FURTHER TREATMENT NECESSARY PER ELECTROLYTE PROTOCOL.
--- NOTE | 2019-08-10 23:44 | NUR ---
PRN PO XANAX 1 MG ADMINISTERED PER PT REQUEST/MD ORDER FOR C/O ANXIETY.
[2019-08-11] VITALS (14 sets, daily range): BP systolic 95–128; BP diastolic 55–83
--- NOTE | 2019-08-11 01:15 | NUR ---
PT PULLED UP IN BED AND POSITIONED FOR COMFORT SUPPORTED WITH PILLOWS. VSS, PT DENIES ANY NEEDS AT THIS TIME, CALL LIGHT IN REACH.
[2019-08-11 04:41] LABS: BASOPHILS 0.1 % (0-2); EOSINOPHILS 0.1 % (0-7); HEMATOCRIT 27.6 % (42.0-54.0); HEMOGLOBIN 8.6 g/dL (13.5-17.5); IMMATURE GRANULOCYTES 0.6 % (0-5); LYMPHOCYTES 3.3 % (15-50); MCH 30.2 pg (26.0-34.0); MCHC 31.2 g/dL (31.0-37.0); MCV 96.8 fL (80.0-100.0); MEAN PLATELET VOLUME 8.6 fL (7.4-10.4); MONOCYTES 4.2 % (2-11); NEUTROPHILS 91.7 % (40-80); PLATELET COUNT 460 10x3/uL (130-400); RBC 2.85 10x6/uL (4.20-6.10); RDW 16.2 % (11.5-14.5)
[2019-08-11 04:55] LABS: CHLORIDE - SERUM 104 mmol/L (98-107); GLUCOSE 141 mg/dL (74-106); POTASSIUM - SERUM 3.9 mmol/L (3.5-5.1); SODIUM 139 mmol/L (136-145)
[2019-08-11 04:56] LABS: CALC OSMOLALITY 282 mosm/kg (275-300); CARBON DIOXIDE 28.4 mmol/L (21.0-32.0); CREATININE - SERUM 1.1 mg/dL (0.6-1.3); UREA NITROGEN 20 mg/dL (7-18); eGFR NON AFRICAN AMERICAN 75 mL/min (90-120)
[2019-08-11 04:57] LABS: CALCIUM 6.9 mg/dL (8.5-10.1)
--- NOTE | 2019-08-11 05:14 | NUR ---
AM LABS REVIEWED, NOTHING TO TREAT PER ELECTROLYTE PROTOCOL.
--- NOTE | 2019-08-11 07:45 | NUR ---
REPORT RECEIVED. PT ON BICARB DRIP TO LEFT AC. PT HAS EASTMAN. CHG BATH GIVEN. LOTION APPLIED TO SCALY SKIN. VSS. NO COMPLAINTS OR NEEDS AT THIS TIME. O2 AT 3L. WILL CONTINUE TO MONITOR.
--- NOTE | 2019-08-11 09:55 | NUR ---
PHYSICAL THERAPY IN WITH PT AT THIS TIME.
--- NOTE | 2019-08-11 11:45 | NUR ---
ASSISTED PT WITH EATING LUNCH. PT ATE ABOUT HALF OF HIS LUNCH. VSS. NO OTHER NEEDS AT THIS TIME. WILL CONTINUE TO MONITOR.
--- NOTE | 2019-08-11 13:45 | NUR ---
PT RESTING QUIETLY. VSS. PT REPOSITIONED.
--- NOTE | 2019-08-11 15:45 | NUR ---
PT SLEEPING. VSS. FAMILY CALLED AND UPDATED. WILL CONTINUE TO MONITOR.
--- NOTE | 2019-08-11 17:27 | NUR ---
PT TO ROOM FROM ICU ON BED. TRANSFERRED TO OTHER BED. RAIZA NOTED, STATLOCK IN PLACE. SCD'S IN USE. OXYGEN PER NC. PT HAD ASSIST TO TRY AND EAT DINNER PRIOR TO TRANSFER BUT NOT VERY HUNGRY. CALL LIGHT IN HAND, PT HAS CONTRACTURES AND LIMITED ROM. DRESSING TO LLE NOTED TO BE CDI.
--- NOTE | 2019-08-11 19:32 | NUR ---
RESTING WITH EYES CLOSED BED LOW AND LOCKED RESP ECVEN AND UNLABORED CALL LIGHT IS WITH PT
[2019-08-12] VITALS: BP 109/67
[2019-08-12 04:00] VITALS: BP 121/76
[2019-08-12 04:47] LABS: CALC OSMOLALITY 286 mosm/kg (275-300); CALCIUM 7.2 mg/dL (8.5-10.1); CARBON DIOXIDE 32.1 mmol/L (21.0-32.0); CHLORIDE - SERUM 108 mmol/L (98-107); CREATININE - SERUM 0.9 mg/dL (0.6-1.3); GLUCOSE 108 mg/dL (74-106); POTASSIUM - SERUM 3.4 mmol/L (3.5-5.1); SODIUM 144 mmol/L (136-145); eGFR NON AFRICAN AMERICAN > 90 mL/min (90-120)
[2019-08-12 04:50] LABS: UREA NITROGEN 11 mg/dL (7-18)
[2019-08-12 04:57] LABS: BASOPHILS 0.1 % (0-2); EOSINOPHILS 0.3 % (0-7); HEMATOCRIT 26.4 % (42.0-54.0); HEMOGLOBIN 8.2 g/dL (13.5-17.5); IMMATURE GRANULOCYTES 0.4 % (0-5); LYMPHOCYTES 4.1 % (15-50); MCHC 31.1 g/dL (31.0-37.0); MCV 96.7 fL (80.0-100.0); MEAN PLATELET VOLUME 8.7 fL (7.4-10.4); MONOCYTES 5.1 % (2-11); PLATELET COUNT 520 10x3/uL (130-400); RBC 2.73 10x6/uL (4.20-6.10); RDW 16.5 % (11.5-14.5); WBC 13.9 10x3/uL (4.8-10.8)
--- NOTE | 2019-08-12 04:59 | NUR ---
I have reviewed this patient and I concur with the Shift Assessment completed by the Licensed Practical Nurse today this shift.
[2019-08-12 08:17] VITALS: BP 112/63
--- NOTE | 2019-08-12 09:36 | NUR ---
PT AWAKE AND ALERT, COMPLAINTS OF PAIN. TREATED FOR PAIN AND ANXIETY. PT IS ABLE TO OFFLOAD SELF, ENCOURAGED TO DO SO.
[2019-08-12 12:01] VITALS: BP 119/73
--- NOTE | 2019-08-12 14:53 | NUR ---
PT'S FAMILY STATES HE JUST HAD VISITOR WITH YOUNG CHILDREN WHO HAD PREVIOUSLY BEEN EXPOSED TO FLU, 3 YEAR OLD SHOWING SOME SYMPTOMS.
[2019-08-12 16:00] VITALS: BP 124/81
--- NOTE | 2019-08-12 19:40 | NUR ---
ASSISTED PT WITH COMFORT AT THIS TIME AND RETURNED CALL LIGHT FROM FLOOR PT DENIES ANY NEEDS ASKED THAT I BRING PAIN MED AND XANAX AROUND 9PM AND ASKED THAT WE PROVIDE SLEEP TONIGHT
[2019-08-12 20:16] VITALS: BP 120/81
[2019-08-13 05:30] VITALS: BP 102/66
[2019-08-13 06:28] LABS: CALC OSMOLALITY 291 mosm/kg (275-300); CALCIUM 7.4 mg/dL (8.5-10.1); CARBON DIOXIDE 34.2 mmol/L (21.0-32.0); CHLORIDE - SERUM 109 mmol/L (98-107); GLUCOSE 108 mg/dL (74-106); SODIUM 147 mmol/L (136-145); UREA NITROGEN 10 mg/dL (7-18); eGFR NON AFRICAN AMERICAN 84 mL/min (90-120)
[2019-08-13 06:49] LABS: BASOPHILS 0.3 % (0-2); EOSINOPHILS 1.1 % (0-7); HEMATOCRIT 27.2 % (42.0-54.0); HEMOGLOBIN 8.2 g/dL (13.5-17.5); IMMATURE GRANULOCYTES 0.7 % (0-5); LYMPHOCYTES 5.6 % (15-50); MCHC 30.1 g/dL (31.0-37.0); MCV 99.6 fL (80.0-100.0); MEAN PLATELET VOLUME 8.7 fL (7.4-10.4); MONOCYTES 6.8 % (2-11); NEUTROPHILS 85.5 % (40-80); PLATELET COUNT 536 10x3/uL (130-400); RBC 2.73 10x6/uL (4.20-6.10); RDW 16.7 % (11.5-14.5); WBC 10.9 10x3/uL (4.8-10.8)
[2019-08-13 10:47] VITALS: BP 127/70
[2019-08-13] MEDS ORDERED: BACTRIM DS PO (12:19)
[2019-08-13 12:51] VITALS: BP 141/73
--- NOTE | 2019-08-13 13:15 | NUR ---
Nutrition Follow-up: Ate ~25% of breakfast this AM but reports that he typically does not eat breakfast. Missing teeth. Noted plan for d/c today. Diet: Renal PO intake: 56% avg x 4 meals Wt: 170.4# (08/13); 149.4# (08/09) [scale discrepancy?] Last BM: 08/10 Labs noted: Na 147, Glu 108, Ca 7.4 Meds noted: Prednisone, KDur -Rec liberalizing to low Na diet. -Encourage PO intake. -Monitor wt; noted daily wts ordered. -RD following.
--- NOTE | 2019-08-13 13:49 | NUR ---
RAIZA DC'D WITH TUBING ITNACT. PT TOLERATED WELL. PT GIVEN URINAL AND STATED T HIM FOR HIM TO LET ME KNOW WHEN HE URINATES. PT VERBALIZED UNDERSTANDING.
--- NOTE | 2019-08-13 13:50 | NUR ---
PT TOLD R.T. AND HE STATES HE ALREADY HAS O2 AT HOME. Brandy. TOLD OPERATING ENGINEER AND THIS NURSE.
--- NOTE | 2019-08-13 13:59 | NUR ---
HORACE BRODERICKORACLE ANALYST NURSE CAME AND LOOKED AT PT'S BOTTOM, FEET, AND LEGS AND STATED HE DOES NOT NEED WOUND CARE AT HOME. SHE STATED THIS TO DC DOUBLE END CHUCKING MACHINE OPERATOR. AND SHE VERBALIZED UNDERSTANDING.
--- NOTE | 2019-08-13 14:40 | NUR ---
DISCHARGE INSTRUCTIONS GIVEN TO PT AND PT'S . THEY HAVE NO FURTHER QUESTIONS. CHART COPY SIGNED. [facility] CALLED FOR WC.
--- NOTE | 2019-08-13 14:42 | NUR ---
PT LEFT VIA WC WITH [facility] AND AND LEFT IN PERSONAL CAR WITH .
--- NOTE | 2019-08-13 15:34 | MORECARE ---
CASE MANAGEMENT DISCHARGE SUMMARY PATIENT: SEKOU ELAINE UNIT: [id number] ADM DATE: 08/09/19 AGE: 49 : [birth year] SEX: M ROOM/BED: D.[facility] AUTHOR: MAGDALENA,DOC PHYSICIAN: REFERRING PHYSICIAN: LADAN HERNANDEZ MD DATE OF SERVICE: 08/13/19 Discharge Plan Patient Name: SEKOU ELAINE Facility: [facility]:[place] : 1970 Planned Disposition: Home Anticipated Discharge Date: 08/13/19 Discharge Date: 08/13/2019 Expected LOS: 4 Initial Reviewer: [email or web address] Initial Review Date: 08/13/2019 Generated: 08/13/19 4:33 pm DCPIA - Discharge Planning Initial Assessment Updated by JASVIR: Giuliano Gill on 08/13/19 3:33 pm * Is the patient Alert and Oriented? Yes * How many steps to enter\exit or inside your home? RAMP * PCP DR. CRUZ * Pharmacy [facility] * Preadmission Environment Home with Family * ADLs Partial Dependent * Partial ADLs (Assistance needed) Medication Management * Equipment Bedside Commode Oxygen Power Chair or Electric Scooter Wheelchair * Other Equipment HOME AND PORTABLE OXYGEN - REFUSES TO USE PER SPOUSE, UNKNOWN PROVIDER * List name and contact numbers for known caregivers / representatives who currently or will assist patient after discharge: TEJ ELAINE, SPOUSE, * Verbal permission to speak to the caregivers and representatives has been obtained from the patient. Yes * Community resources currently utilized None * Please name any agencies selected above. NONE * Additional services required to return to the preadmission environment? No * Can the patient safely return to the preadmission environment? Yes * Has this patient been hospitalized within the prior 30 days at any hospital? No Coverage Notice Reviewer: [email or web address] Gill Notice Issued Date-Time: 08/13/2019 14:05 Notice Type: IM Discharge Notice Notice Delivered To: Patient Relationship to Patient: County Home Demonstrator Name: Delivery Method: HAND - Hand Delivered Анна Days: Prior Verbal Notification: Recipient Understood Notice: Yes Recipient Signature: Yes Med Rec Note Co-signed by Attending: Coverage Notice Comment: Reviewer: [email or web address] Gill Notice Issued Date-Time: 08/13/2019 14:05 Notice Type: Patient Choice Letter Notice Delivered To: Patient Relationship to Patient: County Home Demonstrator Name: Delivery Method: HAND - Hand Delivered Анна Days: Prior Verbal Notification: Recipient Understood Notice: Yes Recipient Signature: Yes Med Rec Note Co-signed by Attending: Coverage Notice Comment: [facility] Patient Name: SEKOU ELAINE Page [phone] at 1534 All edits/amendments must be made on the electronic document DICTATION DATE: 08/13/19 1533 SALES ANALYTICS MANAGER: GOPI 08/13/19 1533 RPT#: [id number] DC DATE:08/13/19 STATUS: DIS IN [facility] [address] [place] [address] END OF REPORT
--- NOTE | 2019-08-13 15:42 | MORECARE ---
CASE MANAGEMENT DISCHARGE SUMMARY PATIENT: SEKOU ELAINE UNIT: [id number] ADM DATE: 08/09/19 AGE: 49 : [birth year] SEX: M ROOM/BED: D.4253 AUTHOR: MAGDALENA,DOC PHYSICIAN: REFERRING PHYSICIAN: LADAN HERNANDEZ MD DATE OF SERVICE: 08/13/19 Discharge Plan Patient Name: SEKOU ELAINE Facility: [facility]:[place] : 1970 Planned Disposition: Home Anticipated Discharge Date: 08/13/19 Discharge Date: 08/13/2019 Expected LOS: 4 Initial Reviewer: [email or web address] Initial Review Date: 08/13/2019 Generated: 08/13/19 4:42 pm Comments DCP- Discharge Planning Updated by [email or web address]: Giuliano Gill on 08/13/19 2:[address] Patient Name: SEKOU ELAINE Admission Status: ER Accout number: [id number] Admission Date: 08-09-2019 : 1970 Admission Diagnosis:SEPSIS, UNSPECIFIED ORGANISM Attending: LADAN HERNANDEZ Current LOS: 4 Anticipated DC Date: 08-13-2019 Planned Disposition: Home Primary Insurance: [employer] ADV Discharge Planning Comments: CM MET WITH PT IN ROOM TO DISCUSS DISCHARGE PLANNING AND NEEDS. PT REPORTS LIVING AT HOME INDEPENDENTLY WITH HIS WHO ASSISTS WITH MEDICATION MANAGEMENT. PT HAS BEDSIDE COMMODE, HOME AND PORTABLE OXYGEN, ELECTRIC WHEELCHAIR AND MANUAL WHEELCHAIR, PROVIDER OF EQUIPMENT IS UNKNOWN. PT HAS NO OUTSIDE SERVICES ASSISTING IN THE HOME. CM DISCUSSED AVAILABILITY OF HOME HEALTH, REHAB SERVICES AND MEDICAL EQUIPMENT. PT CALLED HIS VIA PHONE WHO DENIES DISCHARGE NEEDS, REPORTS SHE WILL PICK PT UP FOR DISCHARGE HOME. CM DISCUSSED HOME HEALTH ORDER, PT'S SPOUSE REPORTS SHE DOES NOT WANT [facility] OR [facility]. CM READ OTHER HOME HEALTH PROVIDERS FROM LISTING. SHE WOULD LIKE TO TRY [facility] ONLY IF THEY NEED HOME HEALTH SHE TAKES CARE OF PT'S WOUNDS. CHOICE SIGNED FOR [facility]. IMPORTANT MESSAGE FROM MED[facility]ARE PROVIDED AND EXPLAINED. CM SPOKE TO RADIO COMMUNICATION COORDINATOR NURSE WHO INFORMED CM THAT PT WAS EVALUTED BY BEDSIDE AND WOUND CARE NURSE, PT IS NOT IN NEED OF ANY WOUND CARE FROM HOME HEALTH. CM NOTIFIED PT WHO WAS PLEASED THAT HE DID NOT HAVE TO HAVE HOME HEALTH. PT DENIES FURHTER DISCHARGE NEEDS. Hardware Design Engineer: Giuliano Gill DCPIA - Discharge Planning Initial Assessment Updated by [email or web address]: Giuliano Gill on 08/13/19 3:33 pm * Is the patient Alert and Oriented? Yes * How many steps to enter\exit or inside your home? RAMP * PCP DR. CRUZ * Pharmacy [facility] * Preadmission Environment Home with Family * ADLs Partial Dependent * Partial ADLs (Assistance needed) Medication Management * Equipment Bedside Commode Oxygen Power Chair or Electric Scooter Wheelchair * Other Equipment HOME AND PORTABLE OXYGEN - REFUSES TO USE PER SPOUSE, UNKNOWN PROVIDER * List name and contact numbers for known caregivers / representatives who currently or will assist patient after discharge: TEJ ELAINE, SPOUSE, * Verbal permission to speak to the caregivers and representatives has been obtained from the patient. Yes * Community resources currently utilized None * Please name any agencies selected above. NONE * Additional services required to return to the preadmission environment? No * Can the patient safely return to the preadmission environment? Yes * Has this patient been hospitalized within the prior 30 days at any hospital? No Coverage Notice Reviewer: [email or web address] - Giuliano Gill Notice Issued Date-Time: 08/13/2019 14:05 Notice Type: IM Discharge Notice Notice Delivered To: Patient Relationship to Patient: [place] Flaker Name: Delivery Method: HAND - Hand Delivered Анна Days: Prior Verbal Notification: Recipient Understood Notice: Yes Recipient Signature: Yes Med Rec Note Co-signed by Attending: Coverage Notice Comment: Reviewer: [email or web address] Racheal Gill Notice Issued Date-Time: 08/13/2019 14:05 Notice Type: Patient Choice Letter Notice Delivered To: Patient Relationship to Patient: [place] Flaker Name: Delivery Method: HAND - Hand Delivered Анна Days: Prior Verbal Notification: Recipient Understood Notice: Yes Recipient Signature: Yes Med Rec Note Co-signed by Attending: Coverage Notice Comment: [facility] Last DP export: 08/13/19 2:34 p Patient Name: SEKOU ELAINE Page [phone] at 1542 All edits/amendments must be made on the electronic document DICTATION DATE: 08/13/19 1542 COVERAGE SPECIALIST RN: GOPI 08/13/19 154 RPT#: [id number] [place] DATE:08/13/19 STATUS: DIS IN [facility] [address] [place] [address] END OF REPORT
== END 2019-08-13 14:55 | disposition home or self-care (01) | DRG 871 ==
LOC: D.ER 16:57 → D.ICU 19:06 → D.M2 19:06
PROVIDERS: Emergency Medicine; ADMIT Internal Medicine Nephrology; ATTEND Internal Medicine Nephrology
DX: A41.9 Sepsis, unspecified organism (principal); R65.21 Severe sepsis with septic shock; E43 Unspecified severe protein-calorie malnutrition; R53.2 Functional quadriplegia; N17.0 Acute kidney failure with tubular necrosis; L03.116 Cellulitis of left lower limb; F17.213 Nicotine dependence, cigarettes, with withdrawal; R55 Syncope and collapse; D64.9 Anemia, unspecified; E87.6 Hypokalemia; E83.42 Hypomagnesemia; I10 Essential (primary) hypertension; J44.9 Chronic obstructive pulmonary disease, unspecified; F10.10 Alcohol abuse, uncomplicated; Z68.23 Body mass index [BMI] 23.0-23.9, adult